=== PATIENT | female | born 1940 | race Caucasian/White ===

== ENCOUNTER → 2017-10-27 | Day surgery (SDC) | payer MEDICARE, OTHER ==
[~2017-10-27] MED LIST: ASPIR-LOW81 MG PO; FENOFIBRATE145 MG PO; FENTANYL CITRATE/PF 100MCG/2 ML INJ ONE; FERROUS SULFAT325 MG PO; FISH OIL 1,0001 EAC3 PO; HYDROCHLOROTHIA25 MG PO; LEVETIRACETAM500 MG PO; LISINOPRIL2.5 MG PO; METOPROLOL SUCC50 MG PO; MIDAZOLAM HCL 2 MG/2 ML VIAL ONE; OR PHACO EYE KIT ONE; PANTOPRAZOLE SO40 MG PO; PREOP PHACO EYE KIT ONE; SIMVASTATIN20 MG PO
--- OUTSIDE RECORDS SUMMARY | 2017-10-27 09:41 | XMS REPORT | Clinical Summary ---
Author Author [facility] Organization [facility] Address Unknown Phone Unavailable Care Team Providers Care Waitstaff Captain Name Role Phone Chase Gupta MD PCP Allergies Active Allergy Reactions Severity Noted Date Comments No Known Drug Allergies 04/16/2016 Current Medications Prescription Sig. Disp. Refills Start End Date Status Date pantoprazole (PROTONIX) Take 40 mg by mouth Active 40 MG EC tablet daily. levETIRAcetam (KEPPRA) Take 500 mg by mouth 2 Active 500 MG tablet (two) times a day. simvastatin (ZOCOR) 10 MG Take 10 mg by mouth Active tablet nightly. fenofibrate (TRICOR) 54 Take 54 mg by mouth Active MG tablet daily. Active Problems Problem Noted Date Electrolyte and fluid disorder 01/02/2016 Pancreas cancer 01/02/2016 Family History Medical History Relation Name Comments Hypertension Other Unspecified Relation Relation Name Status Comments Other Unspecified Relation Social History Tobacco Use Types Packs/Day Years Used Date Never Smoker Smokeless Tobacco: Never Used Alcohol Use Drinks/Week oz/Week Comments No Sex Assigned at Date Recorded Not on file Last Filed Vital Signs Not on file Plan of Treatment Health Maintenance Due Date Last Done Comments ZOSTER VACCINE 2001 PNEUMOCOCCAL 2006 POLYSACCHARIDE VACCINE AGE 65 AND OVER PNEUMOCOCCAL-13 2006 INFLUENZA VACCINE 02/10/2018 Results Not on fileafter 10/26/2016 Insurance Payer Benefit Subscriber ID Type Phone Address Plan / Group MEDICARE MEDICARE xxxxxxxxxx Medicare [place], [place] PART A AND B [facility] xxxxxxxxx HMO/PPO THCARE CHOICE/CHO ICE +
== END | disposition home or self-care (01) ==
LOC: OR 09:39
PROVIDERS: ATTEND Ophthalmology
DX: H25.11 Age-related nuclear cataract, right eye (principal); C25.9 Malignant neoplasm of pancreas, unspecified; K21.9 Gastro-esophageal reflux disease without esophagitis; E11.22 Type 2 diabetes mellitus with diabetic chronic kidney disease; I12.9 Hypertensive chronic kidney disease with stage 1 through stage 4 chronic kidney disease, or unspecified chronic kidney disease; N18.9 Chronic kidney disease, unspecified; Z79.82 Long term (current) use of aspirin
CPT/HCPCS: 66984; J2250; V2632

== ENCOUNTER → 2017-11-10 | Day surgery (SDC) | payer MEDICARE, OTHER ==
[~2017-11-10] MED LIST changes: -FENTANYL CITRATE/PF 100MCG/2 ML INJ ONE; -OR PHACO EYE KIT ONE; -PREOP PHACO EYE KIT ONE
--- OUTSIDE RECORDS SUMMARY | 2017-11-10 09:20 | XMS REPORT | Clinical Summary ---
Author Author [facility] Organization [facility] Address Unknown Phone Unavailable Care Team Providers Care Training And Development Assistant Name Role Phone Chase Gupta MD PCP [...] Health Maintenance Due Date Last Done Comments SHINGRIX VACCINE (#1) 1991 ZOSTER VACCINE 2001 PNEUMOCOCCAL 2006 POLYSACCHARIDE VACCINE AGE 65 AND OVER PNEUMOCOCCAL-13 2006 INFLUENZA VACCINE 02/10/2018 Results Not on fileafter 11/09/2016 Insurance Payer Benefit Subscriber ID Type Phone Address Plan / Group MEDICARE MEDICARE xxxxxxxxxx Medicare [place], [place] PART A AND B [facility] xxxxxxxxx HMO/PPO THCARE CHOICE/CHO ICE + Home: [address] [facility] [place] [phone]
== END | disposition home or self-care (01) ==
LOC: OR 09:18
PROVIDERS: ATTEND Ophthalmology
DX: H25.12 Age-related nuclear cataract, left eye (principal); E11.9 Type 2 diabetes mellitus without complications; Z79.4 Long term (current) use of insulin; I12.9 Hypertensive chronic kidney disease with stage 1 through stage 4 chronic kidney disease, or unspecified chronic kidney disease; N18.9 Chronic kidney disease, unspecified; Z85.07 Personal history of malignant neoplasm of pancreas; Z79.82 Long term (current) use of aspirin
CPT/HCPCS: 66984; J2250

== ENCOUNTER → 2018-01-26 | Outpatient (CLI) | payer MEDICARE, OTHER ==
[~2018-01-26] MED LIST changes: -MIDAZOLAM HCL 2 MG/2 ML VIAL ONE
[2018-01-26 10:58] LABS: CREATININE, SERUM 1.59 mg/dL (0.57-1.11)
--- NOTE | 2018-01-26 14:53 | Diagnostic Imaging Report ---
PROCEDURE: CT ABDOMEN AND PELVIS WITHOUT CONTRAST TECHNIQUE: The abdomen and pelvis were scanned utilizing a multidetector helical scanner from the diaphragm to the lesser trochanter after the oral administration of water. No IV contrast was administered due to decreased GFR. Coronal and sagittal multiplanar reformations were obtained. COMPARISON: [facility], CT, CT ABDOMEN W, 02/29/2016, 10:35. INDICATIONS: PANCREATIC CANCER FINDINGS: ABSENCE OF INTRAVENOUS CONTRAST DECREASES SENSITIVITY FOR DETECTION OF FOCAL LESIONS AND VASCULAR PATHOLOGY. LOWER THORAX: Stable 3-4 mm pulmonary nodule in the lateral left lower lobe (series 2 image 5). Stable 5 mm subpleural wedge-shaped nodular density in the right middle lobe (series 2, image 1), likely representing focal atelectasis or scarring. Lung bases are otherwise clear. Atherosclerotic calcification of the aortic valves, thoracic aorta and coronary arteries HEPATOBILIARY: No focal hepatic lesions. Pneumobilia, predominantly in left-sided ducts. The gallbladder is absent.. SPLEEN: No splenomegaly. PANCREAS: Postoperative changes consistent with Whipple procedure. No focal parenchymal lesions or ductal dilation. Interval development of ill-defined increased soft tissue density at the root of the mesentery which encircles the SMA and result in marked narrowing of the superior mesenteric vein below the confluence (series 2, image 33 coronal image 30 and sagittal image 70). Stable 3 mm calcification in the posterior aspect (series 2 image 32) ADRENALS: No adrenal nodules. KIDNEYS/URETERS: No hydronephrosis, stones, or solid mass lesions. Slight interval increase in size of 3.1 x 2.3 x 2.1 cm partially exophytic fluid density simple cysts in the lateral interpolar right kidney (series 2, image 31) which previously measured approximately 2.8 x 2.0 x 2.1 cm. Slight interval increase in size of 2.0 x 1.8 x 2.1 cm fluid density simple cyst in the lateral interpolar right kidney (series 2, image 36) which previously measured 1.6 x 1.6 x 1.5 cm. Status post left nephrectomy. 0.7 x 0.6 cm calcification located near the renal sinus in the interpolar region, which likely represents a vascular calcification/partly calcified aneurysm rather than a nonobstructing calculus PELVIC ORGANS/BLADDER: Circumferential bladder wall thickening. No focal lesions. Calcified fibroid in the uterine fundus. No adnexal masses. PERITONEUM / RETROPERITONEUM: No free air or fluid. LYMPH NODES: No lymphadenopathy. VESSELS: Atherosclerotic calcification of the abdominal aorta and iliac vessels. GI TRACT: No bowel dilation or evidence of obstruction. BONES AND SOFT TISSUES: No aggressive lytic lesions. Degenerative disc changes in the lumbosacral spine. IMPRESSION: 1. Interval development of ill-defined increase soft tissue density at the root of the mesentery surrounding the SMA, and resulting in narrowing of the SMV below the confluence. Further characterization is limited by the lack of intravenous contrast. Given the history of pancreatic neoplasm, local recurrence is a primary consideration, particularly in the setting of elevated CA 19-9. Postoperative fibrosis secondary to prior Whipple is a secondary consideration. 2. No evidence of metastatic disease in the abdomen or pelvic trauma within the limitations of this noncontrast exam. 3. Slight interval increase in size of 2 simple renal cysts. 4. Stable pulmonary nodule since 2016, which is presumed benign. Sergo Barber M.D. Dictated by: Sergo Barber M.D. on 01/26/2018 at 12:42 Electronically approved by: Sergo Barber M.D. on 01/26/2018 at 12:42
== END ==
LOC: CT 10:04
PROVIDERS: ATTEND Internal Medicine Medical Oncology
DX: Z85.07 Personal history of malignant neoplasm of pancreas (principal)
CPT/HCPCS: 36415; 74176; 82565; 84520

== ENCOUNTER 2018-06-16 09:00 | Observation (INO) | payer MEDICARE, OTHER ==
[~2018-06-16] VITALS: Ht 162.6 cm; Wt 57.4 kg
--- OUTSIDE RECORDS SUMMARY | 2018-06-16 09:03 | XMS REPORT | Clinical Summary ---
Author Author [facility] Address Unknown Phone Unavailable Care Team Providers Care Knitter Helper Name Role Phone Chase Gupta MD PCP Allergies Comments Active Allergy Reactions Severity Noted Date No Known Drug Allergies 04/16/2016 Medications End Date Status Medication Sig Dispensed Refills Start Date Active pantoprazole (PROTONIX) Take 40 mg by 0 40 MG EC tablet mouth daily. Active levETIRAcetam (KEPPRA) Take 500 mg 0 500 MG tablet by mouth 2 (two) times a day. Active simvastatin (ZOCOR) 10 MG Take 10 mg by 0 tablet mouth nightly. Active fenofibrate (TRICOR) 54 Take 54 mg by 0 MG tablet mouth daily. Active Problems Problem Noted Date Electrolyte and fluid disorder 01/02/2016 Pancreas cancer 01/02/2016 Family History Medical History Relation Name Comments Hypertension Other Unspecified Relation Relation Name Status Comments Other Unspecified Relation Social History Date Tobacco Use Types Packs/Day Years Used Never Smoker Smokeless Tobacco: Never Used Alcohol Use Drinks/Week oz/Week Comments No Sex Assigned at Date Recorded Not on file Industry Job Start Date Occupation Not on file Not on file Not on file Travel End Travel History Travel Start No recent travel history available. Last Filed Vital Signs Not on file Plan of Treatment Health Maintenance Due Date Last Done Comments SHINGRIX VACCINE (1 of 2) 1991 ZOSTER VACCINE 2001 PNEUMOCOCCAL 2006 POLYSACCHARIDE VACCINE AGE 65 AND OVER PNEUMOCOCCAL-13 2006 INFLUENZA VACCINE 02/10/2018 Procedures Comments Procedure Name Priority Date/Time Associated Diagnosis TRANSFUSE RED BLOOD CELLS Routine 03/17/2018 5:23 PM CDT TRANSFUSE RED BLOOD CELLS Routine 03/17/2018 5:23 PM CDT after 06/15/2017 Results * Transfuse RBC (03/17/2018 5:23 PM CDT) Only the most recent of 2 results within the time period is included. after 06/15/2017 Insurance Payer Benefit Subscriber ID Type Phone Address Plan / Group MEDICARE MEDICARE xxxxxxxxxx Medicare [place], [place] PART A AND B [facility] xxxxxxxxx HMO/PPO THCARE CHOICE/CHO ICE + Advance Directives Patient has advance care planning documents on file. For more information, jasson montilla contact: Liam oCx [phone] [place] [address]
--- OUTSIDE RECORDS SUMMARY | 2018-06-16 09:04 | XMS REPORT | Summary of Care ---
Author Author [facility] Organization [facility] Address Unknown Phone Unavailable Encounter OSCAR Thomson(SONIA) [id number] Date(s): 12/21/15 - 12/21/15 [facility] [address] [place] [address]- Discharge Disposition: Home Attending Physician: Salvatore Reynolds MD Referring Physician: Salvatore Reynolds MD Vital Signs 1 2 3 Most recent to oldest [Reference Range]: 162.56 cm (12/17/15 3:07 PM) Height 98.2 DegF (12/17/15 3:21 PM) Temperature Oral [96.4-99.1 DegF] 138/68 mmHg (12/21/15 5:00 PM) 125/58 mmHg (12/21/15 4:44 PM) 123/56 mmHg (12/21/15 4:30 PM) Blood Pressure [90-140/60-90 mmHg] 16 BRMIN (12/21/15 5:00 PM) 16 BRMIN (12/21/15 4:44 PM) 16 BRMIN (12/21/15 4:30 PM) Respiratory Rate [14-20 BRMIN] 60 bpm (12/21/15 11:11 AM) 64 bpm (12/17/15 3:21 PM) Peripheral Pulse Rate [60-100 bpm] 53.636 kg (12/17/15 3:07 PM) Weight 20.3 m2 (12/17/15 3:07 PM) Body Mass Index Problem List Condition Effective Dates Status Health Status Informant Acid Active reflux(Confirmed) Hyperlipidemia(Confi Active rmed) Hypertension(Confirm Active ed) Allergies, Adverse Reactions, Alerts Substance Reaction Severity Status NKDA Active Medications aspirin 81 mg tablet, enteric coated 81 mg=1 tab, PO, Daily, # 90 tab, 3 Refill(s) Start Date: 12/17/15 Status: Ordered calcium calcium, 1 tab, PO, BID, Refill(s) 0 Start Date: 12/17/15 Status: Ordered fenofibrate 54 mg oral tablet 54 mg=1 tab, PO, Daily, # 30 tab, 0 Refill(s) Start Date: 12/17/15 Status: Ordered Fish Oil PO, 0 Refill(s) Start Date: 12/17/15 Status: Ordered hydrochlorothiazide 12.5 mg oral tablet 12.5 mg=1 tab, PO, Daily, # 30 tab, 0 Refill(s) Start Date: 12/17/15 Status: Ordered metoprolol 50 mg oral tablet, extended release 50 mg=1 tab, PO, Daily, # 30 tab, 0 Refill(s) Start Date: 12/17/15 Status: Ordered pantoprazole 40 mg oral enteric coated tablet 40 mg=1 tab, PO, Daily, # 30 tab, 0 Refill(s) Start Date: 12/17/15 Status: Ordered simvastatin 10 mg oral tablet 10 mg=1 tab, PO, Bedtime, # 30 tab, 0 Refill(s) Start Date: 12/17/15 Status: Ordered sodium chloride 0.9% 1000 ml INJ 1,000 mL 1,000 mL, Rate: 25 ml/hr, Infuse over: 40 hr, Route: IV, Dosing Weight 53.636 kg , Total Volume: 1,000, Start date: 12/21/15 11:24:00 CDT, Duration: 30 day, Stop date: 01/20/16 11:23:00 CDT Start Date: 12/21/15 Stop Date: 12/21/15 Status: Discontinued Results ELECTROLYTES Most recent to 1 oldest [Reference Range]: Sodium Lvl [135-145 137 mEq/L mEq/L] (12/17/15 3:49 PM) Potassium Lvl 3.3 mEq/L [3.5-5.1 mEq/L] *LOW* (12/17/15 3:49 PM) Chloride Lvl [95-109 100 mEq/L mEq/L] (12/17/15 3:49 PM) CO2 [24-32 mEq/L] 27 mEq/L (12/17/15 3:49 PM) AGAP [10.0-20.0 13.3 mEq/L mEq/L] (12/17/15 3:49 PM) CHEM PANEL Most recent to 1 oldest [Reference Range]: Creatinine Lvl 1.16 mg/dL [0.50-1.40 mg/dL] (12/17/15 3:49 PM) eGFR 46 mL/min/1.73m2 1 *NA* (12/17/15 3:49 PM) BUN [7-22 mg/dL] 20 mg/dL (12/17/15 3:49 PM) Glucose Lvl [70-99 115 mg/dL mg/dL] *HI* (12/17/15 3:49 PM) Calcium Lvl 9.1 mg/dL [8.5-10.5 mg/dL] (12/17/15 3:49 PM) 1Result Comment: The eGFR is calculated using the CKD-EPI formula. In most young, healthy individuals the eGFR will be >90 mL/min/1.73m2. The eGFR declines with age. An eGFR of 60-89 may be normal in some populations, particularly the elderly, for whom the CKD-EPI formula has not been extensively validated. Use of the eGFR is not recommended in the following populations: Individuals with unstable creatinine concentrations, including patients and those with serious co-morbid conditions. Patients with extremes in muscle mass or diet. The data above are obtained from the National Kidney Disease Education Program ( NKDEP) which additionally recommends that when the eGFR is used in patients with extremes of body mass index for purposes of drug dosing, the eGFR should be mul tiplied by the estimated BMI. Immunizations No data available for this section Procedures Procedure Date Related Diagnosis Body Site Tubal ligation 05/13/80 Stent placement Social History Social History Type Response Substance Abuse Use: None. Alcohol Never Smoking Status Never smoker; Exposure to Tobacco Smoke None; Cigarette Smoking Last 365 Days No; Reg Smoking Cessation Counseling No Assessment and Plan No data available for this section
--- OUTSIDE RECORDS SUMMARY | 2018-06-16 09:04 | XMS REPORT ---
Author Author [facility] Address Unknown Phone Unavailable Care Team Providers Care Engineering Coordinator Name Role Phone THANH AREVALO Unavailable Unavailable Problems This patient has no known problems. Allergies, Adverse Reactions, Alerts This patient has no known allergies or adverse reactions. Medications This patient has no known medications. Results Test Description Test Time Test Comments Text Results Atomic Results Result Comments CT ABDOMEN/PELVIS WO 2018-01-26 12:42:00 [place] [address] Patient Name: AN MIN MR #: [id number] : 1940 Age/Sex: 77/F Req #: [id number] Adm Physician: Ordered by: THANH AREVALO MD Report #: [id number] Location: CT Room/Bed: Procedure: [id number] CT/CT ABDOMEN/PELVIS WO Exam Date: 01/26/18 Exam Time: 1115 REPORT STATUS: Signed PROCEDURE: CT ABDOMEN AND PELVIS WITHOUT CONTRAST TECHNIQUE: The abdomen and pelvis were scanned utilizing a multidetector helical scanner from the diaphragm to the lesser trochanter after the oral administration of water. No IV contrast was administered due to decreased GFR. Coronal and sagittal multiplanar reformations were obtained. COMPARISON: [facility], CT, CT ABDOMEN W, 02/29/2016, 10:35. INDICATIONS: PANCREATIC CANCER FINDINGS: ABSENCE OF INTRAVENOUS CONTRAST DECREASES SENSITIVITY FOR DETECTION OF FOCAL LESIONS AND VASCULAR PATHOLOGY. LOWER THORAX: Stable 3-4 mm pulmonary nodule in the lateral left lower lobe (series 2 image 5). Stable 5 mm subpleural wedge-shaped nodular density in the right middle lobe (series 2, image 1), likely representing focal atelectasis or scarring. Lung bases are otherwise clear. Atherosclerotic calcification of the aortic valves, thoracic aorta and coronary arteries HEPATOBILIARY: No focal hepatic lesions. Pneumobilia, predominantly in left- sided ducts. The gallbladder is absent.. SPLEEN: No splenomegaly. PANCREAS: Postoperative changes consistent with Whipple procedure. No focal parenchymal lesions or ductal dilation. Interval development of ill-defined increased soft tissue density at the root of the mesentery which encircles the SMA and result in marked narrowing of the superior mesenteric vein below the confluence (series 2, image 33 coronal image 30 and sagittal image 70). Stable 3 mm calcification in the posterior aspect (series 2 image 32) ADRENALS: No adrenal nodules. KIDNEYS/URETERS: No hydronephrosis, stones, or solid mass lesions. Slight interval increase in size of 3.1 x 2.3 x 2.1 cm partially exophytic fluid density simple cysts in the lateral interpolar right kidney (series 2, image 31) which previously measured approximately 2.8 x 2.0 x 2.1 cm. Slight interval increase in size of 2.0 x 1.8 x 2.1 cm fluid density simple cyst in the lateral interpolar right kidney (series 2, image 36) which previously measured 1.6 x 1.6 x 1.5 cm. Status post left nephrectomy. 0.7 x 0.6 cm calcification located near the renal sinus in the interpolar region, which likely represents a vascular calcification/partly calcified aneurysm rather than a nonobstructing calculus PELVIC ORGANS/BLADDER: Circumferential bladder wall thickening. No focal lesions. Calcified fibroid in the uterine fundus. No adnexal masses. PERITONEUM / RETROPERITONEUM: No free air or fluid. LYMPH NODES: No lymphadenopathy. VESSELS: Atherosclerotic calcification of the abdominal aorta and iliac vessels. GI TRACT: No bowel dilation or evidence of obstruction. BONES AND SOFT TISSUES: No aggressive lytic lesions. Degenerative disc changes in the lumbosacral spine. IMPRESSION: 1. Interval development of ill-defined increase soft tissue density at the root of the mesentery surrounding the SMA, and resulting in narrowing of the SMV below the confluence. Further characterization is limited by the lack of intravenous contrast. Given the history of pancreatic neoplasm, local recurrence is a primary consideration, particularly in the setting of elevated CA 19-9. Postoperative fibrosis secondary to prior Whipple is a secondary consideration. 2. No evidence of metastatic disease in the abdomen or pelvic trauma within the limitations of this noncontrast exam. 3. Slight interval increase in size of 2 simple renal cysts. 4. Stable pulmonary nodule since 2016, which is presumed benign. Sabrina Salgado M.D. Dictated by: Sabrina Salgado M.D. on 01/26/2018 at 12:42 Electronically approved by: Sabrina Salgado M.D. on 01/26/2018 at 12:42 Dictated By: SABRINA SALGADO MD [id number] Transcribed By: NIXON on 01/26/18 1242 COPY TO: THANH AREVALO MD
--- OUTSIDE RECORDS SUMMARY | 2018-06-16 09:04 | XMS REPORT | Summary of Care ---
Author Author [facility] Organization [facility] Address Unknown Phone Unavailable Encounter OSCAR Thomson(SONIA) [id number] Date(s): 12/25/15 - 12/26/15 [facility] [address] [employer] provided by [facility] [place] [address]- Discharge Disposition: Home Attending Physician: Bran Jorge MD Admitting Physician: García George MD Referring Physician: Jose Carrera MD Vital Signs 1 2 3 Most recent to oldest [Reference Range]: 162.56 cm (12/25/15 4:54 AM) 162.56 cm (12/25/15 1:03 AM) Height 98.1 DegF (12/25/15 1:03 AM) Temperature Oral [96.4-99.1 DegF] 149/68 mmHg *HI* (12/26/15 1:00 PM) 130/59 mmHg (12/26/15 12:00 PM) 134/63 mmHg (12/26/15 11:00 AM) Blood Pressure [90-140/60-90 mmHg] 21 BRMIN *HI* (12/26/15 1:00 PM) 25 BRMIN *HI* (12/26/15 12:00 PM) 22 BRMIN *HI* (12/26/15 11:00 AM) Respiratory Rate [14-20 BRMIN] 65 bpm (12/25/15 1:03 AM) Peripheral Pulse Rate [60-100 bpm] 52.182 kg (12/25/15 4:54 AM) 55 kg (12/25/15 1:03 AM) Weight 19.75 m2 (12/25/15 4:54 AM) 20.81 m2 (12/25/15 1:03 AM) Body Mass Index Problem List Condition Effective Dates Status Health Status Informant Acid Active reflux(Confirmed) Hyperlipidemia(Confi Active rmed) Hypertension(Confirm Active ed) Mass of Resolved pancreas(Confirmed) Allergies, Adverse Reactions, Alerts Substance Reaction Severity Status NKDA Active Medications acetaminophen-hydrocodone 325 mg-10 mg oral tablet 1 tab, Route: PO, Drug Form: TAB, Dosing Weight 55, kg, Q4H, PRN Pain Score 4-6, Start date: 12/25/15 2:09:00 CDT, Duration: 30 day, Stop date: 01/24/16 2:08:00 CDT Notes: Do not exceed 4gm/day of acetaminophen. (Same as: Askov 325/10) Start Date: 12/25/15 Stop Date: 12/25/15 Status: Discontinued acetaminophen-hydrocodone 325 mg-5 mg oral tablet 1 tab, Route: PO, Drug Form: TAB, Dosing Weight 55, kg, Q4H, PRN Pain Score 1-3, Start date: 12/25/15 2:09:00 CDT, Duration: 30 day, Stop date: 01/24/16 2:08:00 CDT Notes: (Same as: Askov 325/5) Do not exceed 4gm/day of acetaminophen. Start Date: 12/25/15 Stop Date: 12/25/15 Status: Discontinued bisacodyl 10 mg, 1 supp, Route: PA, Drug form: SUPP, Daily, Dosing Weight 55, kg, PRN Cons tipation, Start date: 12/25/15 2:09:00 CDT, Duration: 30 day, Stop date: 6 2:08:00 CDT Notes: (Same As: Dulcolax, Bisco-Lax) Start Date: 12/25/15 Stop Date: 12/26/15 Status: Discontinued calcium carbonate 500 mg (200 mg elemental calcium) oral tablet 1,000 mg, 2 tab, Route: PO, Drug form: CHEWTAB, PRN, Dosing Weight 52.182, kg, P RN Abnormal Lab Result, FOR ICU USE ONLY, Start date: 12/25/15 6:31:00 CDT, Dura tion: 30 day, Stop date: 01/24/16 6:30:00 CDT Notes: (Same As: [place])Calcium Carbonate 500 kx=624 mg elemental calcium Dose=_ mg calcium carbonate ( mg elemental calcium) Start Date: 12/25/15 Stop Date: 12/26/15 Status: Discontinued calcium carbonate 500 mg (200 mg elemental calcium) oral tablet 500 mg, 1 tab, Route: PO, Drug form: CHEWTAB, PRN, Dosing Weight 52.182, kg, PRN Abnormal Lab Result, FOR ICU USE ONLY, Start date: 12/25/15 6:31:00 CDT, Durati on: 30 day, Stop date: 01/24/16 6:30:00 CDT Notes: (Same As: Tums)Calcium Carbonate 500 md=349 mg elemental calcium Dose=_ mg calcium carbonate ( mg elemental calcium) Start Date: 12/25/15 Stop Date: 12/26/15 Status: Discontinued calcium gluconate + sodium chloride 0.9% INJ 50 mL 1 gm, 10 mL, Route: IVPB, PRN, Dosing Weight 52.182, kg, PRN Abnormal Lab Result , Start date: 12/25/15 6:31:00 CDT, Duration: 30 day, Stop date: 01/24/16 6:30:0 0 CDT, FOR ICU USE ONLY Notes: WASTE: F/P - Sink; E - Municipal Trash Bin Start Date: 12/25/15 Stop Date: 12/26/15 Status: Discontinued Dextrose 50% Syringe 6.25 gm, 12.5 mL, Route: IVP, Drug Form: INJ, Dosing Weight 55, kg, PRN, PRN Abn ormal Lab Result, Start date: 12/25/15 2:09:00 CDT, Duration: 30 day, Stop date: 01/24/16 2:08:00 CDT Start Date: 12/25/15 Stop Date: 12/26/15 Status: Discontinued Dextrose 50% Syringe 25 gm, 50 mL, Route: IVP, Drug Form: INJ, Dosing Weight 55, kg, PRN, PRN Abnorma l Lab Result, Start date: 12/25/15 2:09:00 CDT, Duration: 30 day, Stop date: 2:08:00 CDT Start Date: 12/25/15 Stop Date: 12/26/15 Status: Discontinued Dextrose 50% Syringe 12.5 gm, 25 mL, Route: IVP, Drug Form: INJ, Dosing Weight 55, kg, PRN, PRN Abnor mal Lab Result, Start date: 12/25/15 2:09:00 CDT, Duration: 30 day, Stop date: 0 01/24/16 2:08:00 CDT Start Date: 12/25/15 Stop Date: 12/26/15 Status: Discontinued docusate 100 mg, 1 cap, Route: PO, Drug form: CAP, Q12H, Dosing Weight 55, kg, Start date : 12/25/15 9:00:00 CDT, Duration: 30 day, Stop date: 01/23/16 21:00:00 CDT Notes: (Same as: Colace) (Do Not Crush) Start Date: 12/25/15 Stop Date: 12/26/15 Status: Discontinued insulin regular 100 units/mL human recombinant 3 unit, 0.03 mL, Route: SUB-Q, Drug form: SOLN, PRN, Dosing Weight 55, kg, PRN A bnormal Lab Result, Start date: 12/25/15 2:09:00 CDT, Duration: 30 day, Stop cristal e: 01/24/16 2:08:00 CDT Notes: (Same as: Humulin R) Roll in palms of hands gently; Do not shake vigorou sly. "single patient use only"(Restricted to patients requiring a dose > 60 units)WASTE: F/P - Black; E - Municipal Trash Bin Stable for 28 days at room temperatureExpires in days from Date Start Date: 12/25/15 Stop Date: 12/26/15 Status: Discontinued insulin regular 100 units/mL human recombinant 5 unit, 0.05 mL, Route: SUB-Q, Drug form: SOLN, PRN, Dosing Weight 55, kg, PRN A bnormal Lab Result, Start date: 12/25/15 2:09:00 CDT, Duration: 30 day, Stop cristal e: 01/24/16 2:08:00 CDT Notes: (Same as: Humulin R) Roll in palms of hands gently; Do not shake vigorou sly. "single patient use only"(Restricted to patients requiring a dose > 60 units)WASTE: F/P - Black; E - Municipal Trash Bin Stable for 28 days at room temperatureExpires in days from Date Start Date: 12/25/15 Stop Date: 12/26/15 Status: Discontinued insulin regular 100 units/mL human recombinant 7 unit, 0.07 mL, Route: SUB-Q, Drug form: SOLN, PRN, Dosing Weight 55, kg, PRN A bnormal Lab Result, Start date: 12/25/15 2:09:00 CDT, Duration: 30 day, Stop cristal e: 01/24/16 2:08:00 CDT Notes: (Same as: Humulin R) Roll in palms of hands gently; Do not shake vigorou sly. "single patient use only"(Restricted to patients requiring a dose > 60 units)WASTE: F/P - Black; E - Municipal Trash Bin Stable for 28 days at room temperatureExpires in days from Date Start Date: 12/25/15 Stop Date: 12/26/15 Status: Discontinued levETIRAcetam 500 mg, 1 tab, Route: PO, Drug form: TAB, Q12H, Dosing Weight 55, kg, Start date : 12/25/15 9:00:00 CDT, Stop date: 12/31/15 23:59:00 CDT Notes: (Same as:Keppra) Start Date: 12/25/15 Stop Date: 12/26/15 Status: Discontinued levETIRAcetam + sodium chloride 0.9% INJ 100 mL 1,000 mg, Route: IVPB, Drug form: INJ, ONCE, Dosing Weight 55, kg, Start date: 0 12/25/15 2:09:00 CDT, Stop date: 12/25/15 2:09:00 CDT Notes: Same as KeppraMix with 100 mL NS, LR or D5W MEDICATION WASTE Prod uct Size: 500 mgProduct Wasted: __0_ mg Start Date: 12/25/15 Stop Date: 12/25/15 Status: Completed levETIRAcetam 500 mg oral tablet 500 mg=1 tab, PO, Q12H, # 11 tab, 0 Refill(s) Start Date: 12/26/15 Status: Ordered Lovenox 40 mg, 0.4 mL, Route: SUB-Q, Drug form: INJ, [id number], Dosing Weight 52.182, kg, Start date: 12/26/15 9:00:00 CDT, Duration: 30 day, Stop date: 01/24/16 9:00:00 CDT Notes: (Same as: Lovenox) Start Date: 12/26/15 Stop Date: 12/26/15 Status: Discontinued magnesium oxide 800 mg, 2 tab, Route: PO, Drug form: TAB, PRN, Dosing Weight 52.182, kg, PRN Abn ormal Lab Result, FOR ICU USE ONLY, Start date: 12/25/15 6:31:00 CDT, Duration: 30 day, Stop date: 01/24/16 6:30:00 CDT Notes: (Same as: Mag-Ox 400)Magnesium oxide [id number] elemental magnesiumDose= ____mg magnesium oxide (___mg elemental magnesium) Start Date: 12/25/15 Stop Date: 12/26/15 Status: Discontinued magnesium sulfate 2 gm, 50 mL, Route: IVPB, Drug form: INJ, PRN, Dosing Weight 52.182, kg, PRN Abn ormal Lab Result, Start date: 12/25/15 6:31:00 CDT, Duration: 30 day, Stop date: 01/24/16 6:30:00 CDT, FOR ICU USE ONLY Notes: WASTE: F/P - Sink; E - Municipal Trash Bin Start Date: 12/25/15 Stop Date: 12/26/15 Status: Discontinued metoprolol tartrate 12.5 mg, 1 tab, Route: PO, Drug form: TAB, Q12H, Dosing Weight 52.182, kg, Start date: 12/25/15 9:00:00 CDT, Duration: 30 day, Stop date: 01/23/16 21:00:00 CDT Notes: (Same as: Lopressor) 12.5mg=1/4 X 50 mg tab. Start Date: 12/25/15 Stop Date: 12/26/15 Status: Discontinued Neutra-Phos 2 pkt, Route: PO, Drug Form: PDR/REC, Dosing Weight 52.182, kg, PRN, PRN Abnorma l Lab Result, FOR ICU USE ONLY, Start date: 12/25/15 6:31:00 CDT, Duration: 30 d ay, Stop date: 01/24/16 6:30:00 CDT Notes: (Same as: Neutra-Phos) Each 1.25 gm pkt has 250mg phosphorous. Mix w/2.5 oz water and stir. Start Date: 12/25/15 Stop Date: 12/26/15 Status: Discontinued ondansetron 4 mg, 2 mL, Route: IVP, Drug form: INJ, Q8H, Dosing Weight 55, kg, PRN Nausea & Vomiting, Start date: 12/25/15 2:09:00 CDT, Duration: 30 day, Stop date: 2:08:00 CDT Notes: (Same as: Sherri) MEDICATION WASTE Product Size: 4 mgProduct Was rashel: __0_ mg Start Date: 12/25/15 Stop Date: 12/26/15 Status: Discontinued potassium chloride 20 mEq, 100 mL, Route: IVPB, Drug form: INJ, PRN, Dosing Weight 52.182, kg, PRN Abnormal Lab Result, Via central line, Start date: 12/25/15 6:31:00 CDT, Duratio n: 30 day, Stop date: 01/24/16 6:30:00 CDT, FOR ICU USE ONLY Notes: (Same as: KCL) Infuse no faster than 10 mEq/hr if given peripherally. Start Date: 12/25/15 Stop Date: 12/26/15 Status: Discontinued potassium chloride 10 mEq, 50 mL, Route: IVPB, Drug form: INJ, PRN, Dosing Weight 52.182, kg, PRN A bnormal Lab Result, Via peripheral line, Start date: 12/25/15 6:31:00 CDT, Durat ion: 30 day, Stop date: 01/24/16 6:30:00 CDT, FOR ICU USE ONLY Notes: (Same as: KCL) Infuse over 2 hours. Start Date: 12/25/15 Stop Date: 12/26/15 Status: Discontinued potassium chloride 20 mEq, 1 tab, Route: PO, Drug form: ERTAB, PRN, Dosing Weight 52.182, kg, PRN A bnormal Lab Result, Start date: 12/25/15 6:31:00 CDT, Duration: 30 day, Stop cristal e: 01/24/16 6:30:00 CDT, FOR ICU USE ONLY Notes: (Same as: K-Dur 20)"Do Not Crush" With food and full glass of water Start Date: 12/25/15 Stop Date: 12/26/15 Status: Discontinued potassium chloride 20 mEq, 15 mL, Route: NJ, Drug form: LIQ, PRN, Dosing Weight 52.182, kg, PRN Abn ormal Lab Result, Start date: 12/25/15 6:31:00 CDT, Duration: 30 day, Stop date: 01/24/16 6:30:00 CDT, FOR ICU USE ONLY Notes: (Same as: Potassium Chloride) Start Date: 12/25/15 Stop Date: 12/26/15 Status: Discontinued potassium phosphate + sodium chloride 0.9% INJ 250 mL 15 mmol, 5 mL, Route: IVPB, Drug form: INJ, PRN, Dosing Weight 52.182, kg, PRN A bnormal Lab Result, Start date: 12/25/15 6:31:00 CDT, Duration: 30 day, Stop cristal e: 01/24/16 6:30:00 CDT, FOR ICU USE ONLY Notes: (Same as: K Phosphate.) 1 mMol phoshate has 1.47 mEq potassium Infuse o rosa 4 hours Start Date: 12/25/15 Stop Date: 12/26/15 Status: Discontinued potassium phosphate + sodium chloride 0.9% INJ 250 mL 30 mmol, 10 mL, Route: IVPB, Drug form: INJ, PRN, Dosing Weight 52.182, kg, PRN Abnormal Lab Result, Start date: 12/25/15 6:31:00 CDT, Duration: 30 day, Stop da te: 01/24/16 6:30:00 CDT, FOR ICU USE ONLY Notes: (Same as: K Phosphate.) 1 mMol phoshate has 1.47 mEq potassium Infuse o rosa 4 hours Start Date: 12/25/15 Stop Date: 12/26/15 Status: Discontinued potassium phosphate + sodium chloride 0.9% INJ 250 mL 45 mmol, 15 mL, Route: IVPB, Drug form: INJ, PRN, Dosing Weight 52.182, kg, PRN Abnormal Lab Result, Start date: 12/25/15 6:31:00 CDT, Duration: 30 day, Stop da te: 01/24/16 6:30:00 CDT, FOR ICU USE ONLY Notes: (Same as: K Phosphate.) 1 mMol phoshate has 1.47 mEq potassium Infuse o rosa 4 hours Start Date: 12/25/15 Stop Date: 12/26/15 Status: Discontinued Protonix 40 mg, 1 tab, Route: PO, Drug form: ECTAB, Before Breakfast, Dosing Weight 52.18 2, kg, Start date: 12/25/15 7:30:00 CDT, Duration: 30 day, Stop date: 01/23/16 7 :30:00 CDT Notes: Tablet should not be chewed or crushed.(Same as: Protonix) Start Date: 12/25/15 Stop Date: 12/26/15 Status: Discontinued Saline Flush 0.9% 10 mL, Route: IVP, Drug Form: INJ, Dosing Weight 55, kg, PRN, PRN Line Flush, St art date: 12/25/15 1:11:00 CDT, Duration: 30 day, Stop date: 01/24/16 1:10:00 CD T Notes: Same as: BD Posiflush Sterile Start Date: 12/25/15 Stop Date: 12/26/15 Status: Discontinued Saline Flush 0.9% 10 ml, Route: IVP, Drug Form: INJ, Dosing Weight 55, kg, Q12H, Start date: 12/24 9:00:00 CDT, Duration: 30 day, Stop date: 01/23/16 21:00:00 CDT Notes: (Same as: BD Posiflush) Start Date: 12/25/15 Stop Date: 12/26/15 Status: Discontinued Saline Flush 0.9% 10 ml, Route: IVP, Drug Form: INJ, Dosing Weight 55, kg, PRN, PRN Line Flush, St art date: 12/25/15 2:09:00 CDT, Duration: 30 day, Stop date: 01/24/16 2:08:00 CD T Notes: (Same as: BD Posiflush) Start Date: 12/25/15 Stop Date: 12/26/15 Status: Discontinued senna 8.6 mg, 1 tab, Route: PO, Drug Form: TAB, Dosing Weight 55, kg, Q12H, Start date : 12/25/15 9:00:00 CDT, Duration: 30 day, Stop date: 01/23/16 21:00:00 CDT Notes: (Same as: Senokot) Start Date: 12/25/15 Stop Date: 12/26/15 Status: Discontinued simvastatin 10 mg, 1 tab, Route: PO, Drug form: TAB, Bedtime, Dosing Weight 52.182, kg, Star t date: 12/25/15 21:00:00 CDT, Duration: 30 day, Stop date: 01/23/16 21:00:00 CD T Notes: (Same as: Zocor) Start Date: 12/25/15 Stop Date: 12/26/15 Status: Discontinued sodium chloride 0.9% 1000 ml INJ 1,000 mL 1,000 mL, Rate: 75 ml/hr, Infuse over: 13.3 hr, Route: IV, Dosing Weight 55 kg, Total Volume: 1,000, Start date: 12/25/15 2:09:00 CDT, Stop date: 01/24/16 2:08: 00 CDT Start Date: 12/25/15 Stop Date: 12/26/15 Status: Discontinued sodium phosphate + sodium chloride 0.9% INJ 250 mL 15 mmol, 5 mL, Route: IVPB, Drug form: INJ, PRN, Dosing Weight 52.182, kg, PRN A bnormal Lab Result, Start date: 12/25/15 6:31:00 CDT, Duration: 30 day, Stop cristal e: 01/24/16 6:30:00 CDT, FOR ICU USE ONLY Start Date: 12/25/15 Stop Date: 12/26/15 Status: Discontinued sodium phosphate + sodium chloride 0.9% INJ 250 mL 30 mmol, 10 mL, Route: IVPB, Drug form: INJ, PRN, Dosing Weight 52.182, kg, PRN Abnormal Lab Result, Start date: 12/25/15 6:31:00 CDT, Duration: 30 day, Stop da te: 01/24/16 6:30:00 CDT, FOR ICU USE ONLY Start Date: 12/25/15 Stop Date: 12/26/15 Status: Discontinued sodium phosphate + sodium chloride 0.9% INJ 250 mL 45 mmol, 15 mL, Route: IVPB, Drug form: INJ, PRN, Dosing Weight 52.182, kg, PRN Abnormal Lab Result, Start date: 12/25/15 6:31:00 CDT, Duration: 30 day, Stop da te: 01/24/16 6:30:00 CDT, FOR ICU USE ONLY Start Date: 12/25/15 Stop Date: 12/26/15 Status: Discontinued Zofran 4 mg, Route: IVP, Drug form: INJ, ONCE, Dosing Weight 55, kg, Start date: 4:40:00 CDT, Stop date: 12/25/15 4:40:00 CDT Start Date: 12/25/15 Stop Date: 12/25/15 Status: Completed Results BLOOD BANK RESULTS 1 2 3 Most recent to oldest [Reference Range]: A NEG *Unknown* (12/25/15 1:36 AM) ABO/Rh Negative (12/25/15 1:36 AM) Antibody Scrn ELECTROLYTES 1 2 3 Most recent to oldest [Reference Range]: 141 mEq/L (12/26/15 12:57 AM) 139 mEq/L (12/25/15 12:47 PM) 138 mEq/L (12/25/15 5:02 AM) Sodium Lvl [135-145 mEq/L] 3.5 mEq/L (12/26/15 12:57 AM) 4.7 mEq/L (12/25/15 12:47 PM) 3.0 mEq/L 1 *CRIT* (12/25/15 5:02 AM) Potassium Lvl [3.5-5.1 mEq/L] 109 mEq/L (12/26/15 12:57 AM) 109 mEq/L (12/25/15 12:47 PM) 104 mEq/L (12/25/15 5:02 AM) Chloride Lvl [95-109 mEq/L] 23 mEq/L *LOW* (12/26/15 12:57 AM) 23 mEq/L *LOW* (12/25/15 12:47 PM) 22 mEq/L *LOW* (12/25/15 5:02 AM) CO2 [24-32 mEq/L] 12.5 mEq/L (12/26/15 12:57 AM) 11.7 mEq/L (12/25/15 12:47 PM) 15.0 mEq/L (12/25/15 5:02 AM) AGAP [10.0-20.0 mEq/L] 1Result Comment: Critical Result(s) called to yousif zhao at 12/25/2015 06:25 by ko. Read back OK. CHEM PANEL 1 2 3 Most recent to oldest [Reference Range]: 0.83 mg/dL (12/26/15 12:57 AM) 0.84 mg/dL (12/25/15 12:47 PM) 1.01 mg/dL (12/25/15 5:02 AM) Creatinine Lvl [0.50-1.40 mg/dL] 70 mL/min/1.73m2 1 *NA* (12/26/15 12:57 AM) 69 mL/min/1.73m2 2 *NA* (12/25/15 12:47 PM) 55 mL/min/1.73m2 3 *NA* (12/25/15 5:02 AM) eGFR 17 mg/dL (12/26/15 12:57 AM) 18 mg/dL (12/25/15 12:47 PM) 18 mg/dL (12/25/15 5:02 AM) BUN [7-22 mg/dL] 93 mg/dL (12/26/15 12:57 AM) 89 mg/dL (12/25/15 12:47 PM) 118 mg/dL *HI* (12/25/15 5:02 AM) Glucose Lvl [70-99 mg/dL] 5.7 g/dL *LOW* (12/26/15 12:57 AM) 6.0 g/dL *LOW* (12/25/15 12:47 PM) Total Protein [6.4-8.4 g/dL] 2.2 g/dL *LOW* (12/26/15 12:57 AM) 2.4 g/dL *LOW* (12/25/15 12:47 PM) Albumin Lvl [3.5-5.0 g/dL] 3.5 g/dL (12/26/15 12:57 AM) 3.6 g/dL (12/25/15 12:47 PM) Globulin [2.0-4.0 g/dL] 0.6 *LOW* (12/26/15 12:57 AM) 0.7 (12/25/15 12:47 PM) A/G Ratio [0.7-1.6] 8.7 mg/dL (12/26/15 12:57 AM) 9.0 mg/dL (12/25/15 12:47 PM) 9.2 mg/dL (12/25/15 5:02 AM) Calcium Lvl [8.5-10.5 mg/dL] 1.6 mg/dL *LOW* (12/26/15 12:57 AM) 2.5 mg/dL (12/25/15 5:05 AM) Phosphorus [2.5-4.5 mg/dL] 1.8 mg/dL (12/26/15 12:57 AM) 2.0 mg/dL (12/25/15 5:05 AM) Magnesium Lvl [1.8-2.4 mg/dL] 137 unit/L *HI* (12/26/15 12:57 AM) 161 unit/L *HI* (12/25/15 12:47 PM) ALT [0-65 unit/L] 108 unit/L *HI* (12/26/15 12:57 AM) 142 unit/L *HI* (12/25/15 12:47 PM) AST [0-37 unit/L] 133 unit/L (12/26/15 12:57 AM) 152 unit/L *HI* (12/25/15 12:47 PM) Alk Phos [39-136 unit/L] 155 unit/L (12/25/15 12:47 PM) LDH [98-192 unit/L] 3.8 mg/dL *HI* (12/26/15 12:57 AM) 4.2 mg/dL *HI* (12/25/15 12:47 PM) Bili Total [0.2-1.3 mg/dL] 3.0 mg/dL *HI* (12/26/15 12:57 AM) 3.7 mg/dL *HI* (12/25/15 12:47 PM) Bili Direct [0.0-0.3 mg/dL] 0.8 mg/dL (12/26/15 12:57 AM) 0.5 mg/dL (12/25/15 12:47 PM) Bili Indirect [0.0-1.0 mg/dL] 1.2 mMol/L (12/25/15 1:36 AM) Lactic Acid Lvl [0.5-2.2 mMol/L] 1Result Comment: The eGFR is calculated using [...] be mul tiplied by the estimated BMI. 2Result Comment: The eGFR is calculated using the [...] be mul tiplied by the estimated BMI. 3Result Comment: The eGFR is calculated using the [...] be mul tiplied by the estimated BMI. CARDIAC ENZYMES 1 2 3 Most recent to oldest [Reference Range]: 31 unit/L (12/25/15 12:47 PM) 46 unit/L (12/25/15 5:02 AM) Total CK [12-191 unit/L] <0.010 ng/mL (12/25/15 12:47 PM) <0.010 ng/mL (12/25/15 5:02 AM) Troponin-T [0.000-0.100 ng/mL] 0.02 ng/mL (12/25/15 12:47 PM) 0.02 ng/mL (12/25/15 5:02 AM) Troponin-I [0.00-0.40 ng/mL] ANEMIA STUDY 1 2 3 Most recent to oldest [Reference Range]: 69 ug/dl (12/25/15 12:47 PM) Iron [30-160 ug/dl] 560 ng/mL *HI* (12/25/15 12:47 PM) Ferritin Lvl [5-204 ng/mL] 36 % (12/25/15 12:47 PM) % Satur Fe [12-57 %] 123 ug/dl (12/25/15 12:47 PM) UIBC [110-370 ug/dl] 192 ug/dl *LOW* (12/25/15 12:47 PM) TIBC [228-428 ug/dl] PARATHYROID PROFILE 1 2 3 Most recent to oldest [Reference Range]: 1.17 mMol/L (12/26/15 12:57 AM) 1.19 mMol/L (12/25/15 5:05 AM) Ca Ion WB [1.05-1.25 mMol/L] 1.19 mMol/L (12/26/15 12:57 AM) 1.19 mMol/L (12/25/15 5:05 AM) Ca Norm WB [1.05-1.25 mMol/L] HEMATOLOGY 1 2 3 Most recent to oldest [Reference Range]: 8.0 K/CMM (6/15/16 12:57 AM) 10.2 K/CMM (12/25/15 12:47 PM) 15.6 K/CMM *HI* (12/25/15 5:02 AM) WBC [3.7-10.4 K/CMM] 2.33 M/CMM *LOW* (12/26/15 12:57 AM) 2.26 M/CMM *LOW* (12/25/15 12:47 PM) 2.56 M/CMM *LOW* (12/25/15 5:02 AM) RBC [4.20-5.40 M/CMM] 7.9 g/dL *LOW* (12/26/15 12:57 AM) 7.4 g/dL *LOW* (12/25/15 12:47 PM) 8.4 g/dL *LOW* (12/25/15 5:02 AM) Hgb [12.0-16.0 g/dL] 23.2 % *LOW* (12/26/15 12:57 AM) 22.0 % *LOW* (12/25/15 12:47 PM) 25.0 % *LOW* (12/25/15 5:02 AM) Hct [36.0-48.0 %] 99.5 fL *HI* (12/26/15 12:57 AM) 97.1 fL (12/25/15 12:47 PM) 97.6 fL (12/25/15 5:02 AM) MCV [80.0-98.0 fL] 33.7 pg *HI* (12/26/15 12:57 AM) 32.8 pg *HI* (12/25/15 12:47 PM) 32.8 pg *HI* (12/25/15 5:02 AM) MCH [27.0-31.0 pg] 33.8 g/dL (12/26/15 12:57 AM) 33.8 g/dL (12/25/15 12:47 PM) 33.7 g/dL (12/25/15 5:02 AM) MCHC [32.0-36.0 g/dL] 17.6 % *HI* (12/26/15 12:57 AM) 17.6 % *HI* (12/25/15 12:47 PM) 18.1 % *HI* (12/25/15 5:02 AM) RDW [11.5-14.5 %] 279 K/CMM (12/26/15 12:57 AM) 254 K/CMM (12/25/15 12:47 PM) 300 K/CMM (12/25/15 5:02 AM) Platelet [133-450 K/CMM] 8.9 fL (12/26/15 12:57 AM) 9.7 fL (12/25/15 12:47 PM) 9.1 fL (12/25/15 5:02 AM) MPV [7.4-10.4 fL] 81.6 % *HI* (12/26/15 12:57 AM) 90.4 % *HI* (12/25/15 12:47 PM) 92.3 % *HI* (12/25/15 5:02 AM) Segs [45.0-75.0 %] 8.6 % *LOW* (12/26/15 12:57 AM) 3.9 % *LOW* (12/25/15 12:47 PM) 3.4 % *LOW* (12/25/15 5:02 AM) Lymphocytes [20.0-40.0 %] 6.5 % (12/26/15 12:57 AM) 5.1 % (12/25/15 12:47 PM) 4.2 % (12/25/15 5:02 AM) Monocytes [2.0-12.0 %] 2.9 % (12/26/15 12:57 AM) 0.5 % (12/25/15 12:47 PM) Eosinophils [0.0-4.0 %] 0.4 % (12/26/15 12:57 AM) 0.1 % (12/25/15 12:47 PM) 0.1 % (12/25/15 5:02 AM) Basophils [0.0-1.0 %] 6.5 K/CMM (12/26/15 12:57 AM) 9.2 K/CMM *HI* (12/25/15 12:47 PM) 14.4 K/CMM *HI* (12/25/15 5:02 AM) Segs-Bands # [1.5-8.1 K/CMM] 0.7 K/CMM *LOW* (12/26/15 12:57 AM) 0.4 K/CMM *LOW* (12/25/15 12:47 PM) 0.5 K/CMM *LOW* (12/25/15 5:02 AM) Lymphocytes # [1.0-5.5 K/CMM] 0.5 K/CMM (12/26/15 12:57 AM) 0.5 K/CMM (12/25/15 12:47 PM) 0.7 K/CMM (12/25/15 5:02 AM) Monocytes # [0.0-0.8 K/CMM] 0.2 K/CMM (12/26/15 12:57 AM) 0.1 K/CMM (12/25/15 12:47 PM) Eosinophils # [0.0-0.5 K/CMM] Normal (12/25/15 1:36 AM) RBC Morph 1+ *ABN* (12/25/15 12:47 PM) Anisocyte [None Seen] Slight *NA* (12/25/15 12:47 PM) Polychrom Occasional *ABN* (12/25/15 12:47 PM) Spherocyte [None Seen] Peripheral blood smear shows macrocytic anemia with polychromasia and few microspherocytes. Lymphopenia with reactive lymphocytes. no blast seen. platelets are unremarkable. Few hypersegmented neutrophils. clinical correlation is suggested, anemia studies are suggested including vitamin B12/folic acid. CPT 21687 *NA* (12/25/15 12:47 PM) PB Smear Path Normal (12/25/15 12:47 PM) Normal (12/25/15 1:36 AM) Plt Morph 16.2 seconds *HI* (12/25/15 5:02 AM) 15.9 seconds *HI* (12/25/15 1:36 AM) PT [12.0-14.7 seconds] 1.27 *HI* (12/25/15 5:02 AM) 1.24 *HI* (12/25/15 1:36 AM) INR [0.85-1.17] 33.7 seconds (12/25/15 5:02 AM) 38.9 seconds *HI* (12/25/15 1:36 AM) PTT [22.9-35.8 seconds] 97 seconds (12/25/15 1:36 AM) ACT (TEG) Rapid [86-118 seconds] 0.3 minutes *NA* (12/25/15 1:36 AM) Split Point Rapid 0.5 minutes (12/25/15 1:36 AM) R-time Rapid [0.4-0.7 minutes] 0.8 minutes (12/25/15 1:36 AM) K-time Rapid [0.6-2.3 minutes] 81 degrees *HI* (12/25/15 1:36 AM) Angle Rapid [64-80 degrees] 68 mm (12/25/15 1:36 AM) Max Amplitude Rapid [52-71 mm] 10.4 K d/sc (12/25/15 1:36 AM) G-value Rapid [5.0-11.6 K d/sc] 11.0 % 1 *HI* (12/25/15 1:36 AM) Estimated % Lysis Rapid [0.0-7.5 %] 1Result Comment: "Significant Findings called to German Aden_at 12/25/2015 03:00__by RM__.Read Back OK." BACTERIAL - SEROLOGY 1 2 3 Most recent to oldest [Reference Range]: Negative (12/25/15 5:02 AM) MRSA by PCR Immunizations No data available for this section Procedures Procedure Date Related Diagnosis Body Site Tubal ligation 05/13/80 Stent placement Social History Social History Type Response Substance Abuse Use: None. Alcohol Never Smoking Status Never smoker; Exposure to Tobacco Smoke None; Cigarette Smoking Last 365 Days No; Reg Smoking Cessation Counseling No Assessment and Plan Extracted from: Title: NeuroTrauma Follow Up Author: Monserrat Duckworth Date: 12/27/15 Arranged for patient to follow up with [facility] [phone] on January 10, 2016 at 1:30pm. Will remain available to assist as needed. Monserrat Duckworth LMSW [facility]# [id number] [employer]
--- OUTSIDE RECORDS SUMMARY | 2018-06-16 09:04 | XMS REPORT | Continuity of Care Document ---
Author Author [facility] Interface Address Unknown Phone Unavailable Problems Problem Status Onset Date Classification Date Reported Comments Source SDH Active 12/24/2015 [facility] HEAD BLEED Active 12/24/2015 [facility] UNK Active 12/07/2015 [facility] Acid reflux Active Problem 12/29/2015 [facility] Hyperlipidemia Active Problem 12/29/2015 [facility] Hypertension Active Problem 12/29/2015 [facility] Mass of pancreas Resolved Problem 12/29/2015 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 OTHER SPECIFIED DISEASES OF PANCREAS Active [facility] Medications Medication Details Route Status Patient Instructions Ordering Provider Order Date Source Levetiracetam 500 MG Oral Tablet 500 mg=1 tab, PO, Q12H, # 11 tab, 0 Refill(s) Active 12/26/2015 [facility] Lovenox 40 mg, 0.4 mL, Route: SUB-Q, Drug form: INJ, [id number], Dosing Weight 52.182, kg, Start date: 12/26/15 9:00:00 CDT, Duration: 30 day, Stop date: 01/24/16 9:00:00 CDTNotes: (Same as: Lovenox) Inactive 12/26/2015 [facility] Simvastatin 10 mg, 1 tab, Route: PO, Drug form: TAB, Bedtime, Dosing Weight 52.182, kg, Start date: 12/25/15 21:00:00 CDT, Duration: 30 day, Stop date: 01/23/16 21:00:00 CDTNotes: (Same as: Zocor) No Longer Active 12/26/2015 [facility] metoprolol tartrate 12.5 mg, 1 tab, Route: PO, Drug form: TAB, Q12H, Dosing Weight 52.182, kg, Start date: 12/25/15 9:00:00 CDT, Duration: 30 day, Stop date: 01/23/16 21:00:00 CDTNotes: (Same as: Lopressor) 12.5mg=1/4 X 50 mg tab. No Longer Active 12/25/2015 [facility] Saline Flush 0.9% 10 ml, Route: IVP, Drug Form: INJ, Dosing Weight 55, kg, Q12H, Start date: 12/25/15 9:00:00 CDT, Duration: 30 day, Stop date: 01/23/16 21:00:00 CDTNotes: (Same as: BD Posiflush) No Longer Active 12/25/2015 [facility] sennosides, SKILLED NURSING 8.6 mg, 1 tab, Route: PO, Drug Form: TAB, Dosing Weight 55, kg, Q12H, Start date: 12/25/15 9:00:00 CDT, Duration: 30 day, Stop date: 01/23/16 21:00:00 CDTNotes: (Same as: Senokot) No Longer Active 12/25/2015 [facility] Docusate 100 mg, 1 cap, Route: PO, Drug form: CAP, Q12H, Dosing Weight 55, kg, Start date: 12/25/15 9:00:00 CDT, Duration: 30 day, Stop date: 01/23/16 21:00:00 CDTNotes: (Same as: Colace) (Do Not Crush) No Longer Active 12/25/2015 [facility] Levetiracetam 500 mg, 1 tab, Route: PO, Drug form: TAB, Q12H, Dosing Weight 55, kg, Start date: 12/25/15 9:00:00 CDT, Stop date: 12/31/15 23:59:00 CDTNotes: (Same as:Keppra) No Longer Active 12/25/2015 [facility] Protonix 40 mg, 1 tab, Route: PO, Drug form: ECTAB, Before Breakfast, Dosing Weight 52.182, kg, Start date: 12/25/15 7:30:00 CDT, Duration: 30 day, Stop date: 01/23/16 7:30:00 CDTNotes: Tablet should not be c hewed or crushed. (Same as: Protonix) No Longer Active 12/25/2015 [facility] Calcium Carbonate 500 MG Chewable Tablet 1,000 mg, 2 tab, Route: PO, Drug form: CHEWTAB, PRN, Dosing Weight 52.182, kg, PRN Abnormal Lab Result, FOR ICU USE ONLY, Start date: 12/25/15 6:31:00 CDT, Duration: 30 day, Stop date: 01/24/16 6:30:00 CDTNotes: (Same As: Tums) Calcium Carbonate 500 ga=404 mg elemental calcium Dose= mg calcium carbonate ( mg elemental calcium) No Longer Active 12/25/2015 [facility] Magnesium Sulfate 2 gm, 50 mL, Route: IVPB, Drug form: INJ, PRN, Dosing Weight 52.182, kg, PRN Abnormal Lab Result, Start date: 12/25/15 6:31:00 CDT, Duration: 30 day, Stop date: 01/24/16 6:30:00 CDT, FOR ICU USE ONLYNotes: WASTE: F/P - Sink; E - Municipal Trash Bin No Longer Active 12/25/2015 [facility] Magnesium Oxide 800 mg, 2 tab, Route: PO, Drug form: TAB, PRN, Dosing Weight 52.182, kg, PRN Abnormal Lab Result, FOR ICU USE ONLY, Start date: 12/25/15 6:31:00 CDT, Duration: 30 day, Stop date: 01/24/16 6:30:00 CDTNot es: (Same as: Mag-Ox 400) Magnesium oxide [id number] elemental magnesium Dose=____mg magnesium oxide (___mg elemental magnesium) No Longer Active 12/25/2015 [facility] Calcium Gluconate 1 gm, 10 mL, Route: IVPB, PRN, Dosing Weight 52.182, kg, PRN Abnormal Lab Result, Start date: 12/25/15 6:31:00 CDT, Duration: 30 day, Stop date: 01/24/16 6:30:00 CDT, FOR ICU USE ONLYNotes: WASTE: F/P - Sink; E - Municipal Trash Bin No Longer Active 12/25/2015 [facility] Neutra-Phos 2 pkt, Route: PO, Drug Form: PDR/REC, Dosing Weight 52.182, kg, PRN, PRN Abnormal Lab Result, FOR ICU USE ONLY, Start date: 12/25/15 6:31:00 CDT, Duration: 30 day, Stop date: 01/24/16 6:30:00 CDTNotes: (Same as: Neutra-Phos) Each 1.25 gm pkt has 250mg phosphorous. Mix w/2.5oz water and stir. No Longer Active 12/25/2015 [facility] potassium chloride 20 mEq, 100 mL, Route: IVPB, Drug form: INJ, PRN, Dosing Weight 52.182, kg, PRN Abnormal Lab Result, Via central line, Start date: 12/25/15 6:31:00 CDT, Duration: 30 day, Stop date: 01/24/16 6:30:00 CDT, FOR ICU USE ONLYNotes: (Same as: KCL) Infuse no faster than 10 mEq/hr if given peripherally. No Longer Active 12/25/2015 [facility] sodium phosphate + sodium chloride 0.9% INJ 250 mL 15 mmol, 5 mL, Route: IVPB, Drug form: INJ, PRN, Dosing Weight 52.182, kg, PRN Abnormal Lab Result, Start date: 12/25/15 6:31:00 CDT, Duration: 30 day, Stop date: 01/24/16 6:30:00 CDT, FOR ICU USE ONLY No Longer Active 12/25/2015 [facility] potassium phosphate + sodium chloride 0.9% INJ 250 mL 15 mmol, 5 mL, Route: IVPB, Drug form: INJ, PRN, Dosing Weight 52.182, kg, PRN Abnormal Lab Result, Start date: 12/25/15 6:31:00 CDT, Duration: 30 day, Stop date: 01/24/16 6:30:00 CDT, FOR ICU USE ONLYNotes: (Same as: K Phosphate.) 1 mMol phoshate has 1.47 mEq potassium Infuse over 4 hours No Longer Active 12/25/2015 [facility] Zofran 4 mg, Route: IVP, Drug form: INJ, ONCE, Dosing Weight 55, kg, Start date: 12/25/15 4:40:00 CDT, Stop date: 12/25/15 4:40:00 CDT Inactive 12/25/2015 [facility] Dextrose 50% Syringe 6.25 gm, 12.5 mL, Route: IVP, Drug Form: INJ, Dosing Weight 55, kg, PRN, PRN Abnormal Lab Result, Start date: 12/25/15 2:09:00 CDT, Duration: 30 day, Stop date: 01/24/16 2:08:00 CDT No Longer Active 12/25/2015 [facility] Regular Insulin, Human 100 UNT/ML Injectable Solution 3 unit, 0.03 mL, Route: SUB-Q, Drug form: SOLN, PRN, Dosing Weight 55, kg, PRN Abnormal Lab Result, Start date: 12/25/15 2:09:00 CDT, Duration: 30 day, Stop date: 01/24/16 2:08:00 CDTNotes: (Same as: Humulin R) Roll in palms of hands gently; Do not shake vigorously. "single patient use only" (Restricted to patients requiring a dose > 60 units) WASTE: F/P - Black; E - Municipal Trash Bin Stable for 28 days at room temperature Expires in days from Date No Longer Active 12/25/2015 [facility] Saline Flush 0.9% 10 ml, Route: IVP, Drug Form: INJ, Dosing Weight 55, kg, PRN, PRN Line Flush, Start date: 12/25/15 2:09:00 CDT, Duration: 30 day, Stop date: 01/24/16 2:08:00 CDTNotes: (Same as: BD Posiflush) No Longer Active 12/25/2015 [facility] Ondansetron 4 mg, 2 mL, Route: IVP, Drug form: INJ, Q8H, Dosing Weight 55, kg, PRN Nausea & Vomiting, Start date: 12/25/15 2:09:00 CDT, Duration: 30 day, Stop date: 01/24/16 2:08:00 CDTNotes: (Same as: Zofran) MEDICATION WASTE Product Size: 4 mg Product Wasted: __0_ mg No Longer Active 12/25/2015 [facility] Bisacodyl 10 mg, 1 supp, Route: MI, Drug form: SUPP, Daily, Dosing Weight 55, kg, PRN Constipation, Start date: 12/25/15 2:09:00 CDT, Duration: 30 day, Stop date: 01/24/16 2:08:00 CDTNotes: (Same As: Dulcolax, Bisco-Lax) No Longer Active 12/25/2015 [facility] Levetiracetam 1,000 mg, Route: IVPB, Drug form: INJ, ONCE, Dosing Weight 55, kg, Start date: 12/25/15 2:09:00 CDT, Stop date: 12/25/15 2:09:00 CDTNotes: Same as Keppra Mix with 100 mL NS, LR or D5W MEDICATION WASTE Product Size: 500 mg Product Wasted: __0_ mg Inactive 12/25/2015 [facility] Acetaminophen 325 MG / Hydrocodone Bitartrate 5 MG Oral Tablet 1 tab, Route: PO, Drug Form: TAB, Dosing Weight 55, kg, Q4H, PRN Pain Score 1-3, Start date: 12/25/15 2:09:00 CDT, Duration: 30 day, Stop date: 01/24/16 2:08:00 CDTNotes: (Same as: Dubberly 325/5) Do not exceed 4gm/day of acetaminophen. Inactive 12/25/2015 [facility] Acetaminophen 325 MG / Hydrocodone Bitartrate 10 MG Oral Tablet 1 tab, Route: PO, Drug Form: TAB, Dosing Weight 55, kg, Q4H, PRN Pain Score 4-6, Start date: 12/25/15 2:09:00 CDT, Duration: 30 day, Stop date: 01/24/16 2:08:00 CDTNotes: Do not exceed 4gm/day of acetaminophen. (Same as: Dubberly 325/10) Inactive 12/25/2015 [facility] Sodium Chloride 0.154 MEQ/ML Injectable Solution 1,000 mL, Rate: 75 ml/hr, Infuse over: 13.3 hr, Route: IV, Dosing Weight 55 kg, Total Volume: 1,000, Start date: 12/25/15 2:09:00 CDT, Stop date: 01/24/16 2:08:00 CDT No Longer Active 12/25/2015 [facility] Saline Flush 0.9% 10 mL, Route: IVP, Drug Form: INJ, Dosing Weight 55, kg, PRN, PRN Line Flush, Start date: 12/25/15 1:11:00 CDT, Duration: 30 day, Stop date: 01/24/16 1:10:00 CDTNotes: Same as: BD Posiflush Sterile No Longer Active 12/25/2015 [facility] Sodium Chloride 0.154 MEQ/ML Injectable Solution 1,000 mL, Rate: 25 ml/hr, Infuse over: 40 hr, Route: IV, Dosing Weight 53.636 kg, Total Volume: 1,000, Start date: 12/21/15 11:24:00 CDT, Duration: 30 day, Stop date: 01/20/16 11:23:00 CDT Inactive 12/21/2015 [facility] calcium calcium, 1 tab, PO, BID, Refill(s) 0 Active 12/17/2015 [facility] Fish Oil PO, 0 Refill(s) Active 12/17/2015 [facility] Aspirin 81 MG Enteric Coated Tablet 81 mg=1 tab, PO, Daily, # 90 tab, 3 Refill(s) Active 12/17/2015 [facility] Fenofibrate 54 MG Oral Tablet 54 mg=1 tab, PO, Daily, # 30 tab, 0 Refill(s) Active 12/17/2015 [facility] simvastatin 10 mg oral tablet 10 mg=1 tab, PO, Bedtime, # 30 tab, 0 Refill(s) Active 12/17/2015 [facility] pantoprazole 40 mg oral enteric coated tablet 40 mg=1 tab, PO, Daily, # 30 tab, 0 Refill(s) Active 12/17/2015 [facility] hydrochlorothiazide 12.5 mg oral tablet 12.5 mg=1 tab, PO, Daily, # 30 tab, 0 Refill(s) Active 12/17/2015 [facility] metoprolol 50 mg oral tablet, extended release 50 mg=1 tab, PO, Daily, # 30 tab, 0 Refill(s) Active 12/17/2015 [facility] Allergies, Adverse Reactions, Alerts Substance Category Reaction Severity Reaction type Status Date Reported Comments Source Immunizations Immunization Date Given Site Status Last Updated Comments Source Results Order Name Results Value Reference Range Date Interpretation Comments Source CHEM PANEL Magnesium Lvl 1.8 mg/dL 1.8 - 2.4 12/26/2015 [facility] CHEM PANEL eGFR 70 mL/min/1.73m2 12/26/2015 Result Comment: The eGFR is calculated using the [...] from the National Kidney Disease Education Program (NKDEP) which additionally recommends that when the eGFR is used in patients with extremes of body mass index for purposes of drug dosing, the eGFR should be multiplied by the estimated BMI. [facility] CHEM PANEL Creatinine Lvl 0.83 mg/dL 0.50 - 1.40 12/26/2015 [facility] CHEM PANEL Sodium Lvl 141 meq/L 135 - 145 12/26/2015 [facility] CHEM PANEL Glucose Lvl 93 mg/dL 70 - 99 12/26/2015 [facility] CHEM PANEL BUN 17 mg/dL 7 - 22 12/26/2015 [facility] CHEM PANEL Potassium Lvl 3.5 meq/L 3.5 - 5.1 12/26/2015 [facility] CHEM PANEL Calcium Lvl 8.7 mg/dL 8.5 - 10.5 12/26/2015 [facility] CHEM PANEL Chloride Lvl 109 meq/L 95 - 109 12/26/2015 [facility] CHEM PANEL CO2 23 meq/L 24 - 32 12/26/2015 [facility] CHEM PANEL AGAP 12.5 meq/L 10.0 - 20.0 12/26/2015 [facility] CHEM PANEL AST 108 unit/L 0 - 37 12/26/2015 [facility] CHEM PANEL ALT 137 unit/L 0 - 65 12/26/2015 [facility] CHEM PANEL Albumin Lvl 2.2 g/dL 3.5 - 5.0 12/26/2015 [facility] CHEM PANEL Total Protein 5.7 g/dL 6.4 - 8.4 12/26/2015 [facility] CHEM PANEL Bili Total 3.8 mg/dL 0.2 - 1.3 12/26/2015 [facility] CHEM PANEL Bili Direct 3.0 mg/dL 0.0 - 0.3 12/26/2015 [facility] CHEM PANEL Alk Phos 133 unit/L 39 - 136 12/26/2015 [facility] CHEM PANEL Bili Indirect 0.8 mg/dL 0.0 - 1.0 12/26/2015 [facility] CHEM PANEL A/G Ratio 0.6 0.7 - 1.6 12/26/2015 [facility] CHEM PANEL Globulin 3.5 g/dL 2.0 - 4.0 12/26/2015 [facility] CHEM PANEL Phosphorus 1.6 mg/dL 2.5 - 4.5 12/26/2015 [facility] HEMATOLOGY WBC 8.0 K/CMM 3.7 - 10.4 12/26/2015 [facility] HEMATOLOGY MPV 8.9 fL 7.4 - 10.4 12/26/2015 [facility] HEMATOLOGY RDW 17.6 % 11.5 - 14.5 12/26/2015 [facility] HEMATOLOGY Platelet 279 K/CMM 133 - 450 12/26/2015 [facility] HEMATOLOGY RBC 2.33 M/CMM 4.20 - 5.40 12/26/2015 [facility] HEMATOLOGY Hgb 7.9 g/dL 12.0 - 16.0 12/26/2015 [facility] HEMATOLOGY Hct 23.2 % 36.0 - 48.0 12/26/2015 [facility] HEMATOLOGY MCV 99.5 fL 80.0 - 98.0 12/26/2015 [facility] HEMATOLOGY MCH 33.7 pg 27.0 - 31.0 12/26/2015 [facility] HEMATOLOGY MCHC 33.8 g/dL 32.0 - 36.0 12/26/2015 [facility] HEMATOLOGY Monocytes 6.5 % 2.0 - 12.0 12/26/2015 [facility] HEMATOLOGY Lymphocytes 8.6 % 20.0 - 40.0 12/26/2015 [facility] HEMATOLOGY Basophils 0.4 % 0.0 - 1.0 12/26/2015 [facility] HEMATOLOGY Lymphocytes # 0.7 K/CMM 1.0 - 5.5 12/26/2015 [facility] HEMATOLOGY Eosinophils # 0.2 K/CMM 0.0 - 0.5 12/26/2015 [facility] HEMATOLOGY Monocytes # 0.5 K/CMM 0.0 - 0.8 12/26/2015 [facility] HEMATOLOGY Eosinophils 2.9 % 0.0 - 4.0 12/26/2015 [facility] HEMATOLOGY Segs-Bands # 6.5 K/CMM 1.5 - 8.1 12/26/2015 [facility] HEMATOLOGY Segs 81.6 % 45.0 - 75.0 12/26/2015 [facility] PARATHYROID PROFILE Ca Ion WB 1.17 mMol/L 1.05 - 1.25 12/26/2015 [facility] PARATHYROID PROFILE Ca Norm WB 1.19 mMol/L 1.05 - 1.25 12/26/2015 [facility] ANEMIA STUDY Ferritin Lvl 560 ng/mL 5 - 204 12/25/2015 [facility] ANEMIA STUDY % S[place] Fe 36 % 12 - 57 12/25/2015 [facility] ANEMIA STUDY UIBC 123 ug/dl 110 - 370 12/25/2015 [facility] ANEMIA STUDY Iron 69 ug/dl 30 - 160 12/25/2015 [facility] ANEMIA STUDY TIBC 192 ug/dl 228 - 428 12/25/2015 [facility] CARDIAC ENZYMES Troponin-T null 0.000 - 0.100 12/25/2015 [facility] CARDIAC ENZYMES Total CK 31 unit/L 12 - 191 12/25/2015 [facility] CARDIAC ENZYMES Troponin-I 0.02 ng/mL 0.00 - 0.40 12/25/2015 [facility] CHEM PANEL eGFR 69 mL/min/1.73m2 12/25/2015 Result Comment: The eGFR is calculated using the [...] from the National Kidney Disease Education Program (NKDEP) which additionally recommends that when the eGFR is used in patients with extremes of body mass index for purposes of drug dosing, the eGFR should be multiplied by the estimated BMI. [facility] CHEM PANEL Calcium Lvl 9.0 mg/dL 8.5 - 10.5 12/25/2015 [facility] CHEM PANEL Potassium Lvl 4.7 meq/L 3.5 - 5.1 12/25/2015 [facility] CHEM PANEL AGAP 11.7 meq/L 10.0 - 20.0 12/25/2015 [facility] CHEM PANEL Chloride Lvl 109 meq/L 95 - 109 12/25/2015 [facility] CHEM PANEL CO2 23 meq/L 24 - 32 12/25/2015 [facility] CHEM PANEL Glucose Lvl 89 mg/dL 70 - 99 12/25/2015 [facility] CHEM PANEL Sodium Lvl 139 meq/L 135 - 145 12/25/2015 [facility] CHEM PANEL BUN 18 mg/dL 7 - 22 12/25/2015 [facility] CHEM PANEL Creatinine Lvl 0.84 mg/dL 0.50 - 1.40 12/25/2015 [facility] CHEM PANEL LDH 155 unit/L 98 - 192 12/25/2015 [facility] CHEM PANEL Bili Indirect 0.5 mg/dL 0.0 - 1.0 12/25/2015 [facility] CHEM PANEL A/G Ratio 0.7 0.7 - 1.6 12/25/2015 [facility] CHEM PANEL Globulin 3.6 g/dL 2.0 - 4.0 12/25/2015 [facility] CHEM PANEL Total Protein 6.0 g/dL 6.4 - 8.4 12/25/2015 [facility] CHEM PANEL Albumin Lvl 2.4 g/dL 3.5 - 5.0 12/25/2015 [facility] CHEM PANEL Alk Phos 152 unit/L 39 - 136 12/25/2015 [facility] CHEM PANEL Bili Direct 3.7 mg/dL 0.0 - 0.3 12/25/2015 [facility] CHEM PANEL Bili Total 4.2 mg/dL 0.2 - 1.3 12/25/2015 [facility] CHEM PANEL AST 142 unit/L 0 - 37 12/25/2015 [facility] CHEM PANEL ALT 161 unit/L 0 - 65 12/25/2015 [facility] HEMATOLOGY Lymphocytes # 0.4 K/CMM 1.0 - 5.5 12/25/2015 [facility] HEMATOLOGY Segs-Bands # 9.2 K/CMM 1.5 - 8.1 12/25/2015 [facility] HEMATOLOGY Monocytes 5.1 % 2.0 - 12.0 12/25/2015 [facility] HEMATOLOGY Basophils 0.1 % 0.0 - 1.0 12/25/2015 [facility] HEMATOLOGY Eosinophils 0.5 % 0.0 - 4.0 12/25/2015 [facility] HEMATOLOGY Polychrom Slight 12/25/2015 [facility] HEMATOLOGY Anisocyte 1+ *ABN* (12/25/15 12:47 PM) None Seen 12/25/2015 [facility] HEMATOLOGY Spherocyte Occasional *ABN* (12/25/15 12:47 PM) None Seen 12/25/2015 [facility] HEMATOLOGY Eosinophils # 0.1 K/CMM 0.0 - 0.5 12/25/2015 [facility] HEMATOLOGY Monocytes # 0.5 K/CMM 0.0 - 0.8 12/25/2015 [facility] HEMATOLOGY Plt Morph Normal (12/25/15 12:47 PM) 12/25/2015 [facility] HEMATOLOGY Lymphocytes 3.9 % 20.0 - 40.0 12/25/2015 [facility] HEMATOLOGY Segs 90.4 % 45.0 - 75.0 12/25/2015 [facility] HEMATOLOGY PB Smear Path Peripheral blood smear shows macrocytic anemia with polychromasia and few microspherocytes. Lymphopenia with reactive lymphocytes. no blast seen. platelets are unremarkable. Few hypersegmented neutrophils.clinical correlation is suggested, anemia studies are suggested including vitamin B12/folic acid.CPT [id number] 12/25/2015 [facility] HEMATOLOGY MPV 9.7 fL 7.4 - 10.4 12/25/2015 [facility] HEMATOLOGY RDW 17.6 % 11.5 - 14.5 12/25/2015 [facility] HEMATOLOGY Platelet 254 K/CMM 133 - 450 12/25/2015 [facility] HEMATOLOGY MCHC 33.8 g/dL 32.0 - 36.0 12/25/2015 [facility] HEMATOLOGY MCV 97.1 fL 80.0 - 98.0 12/25/2015 [facility] HEMATOLOGY MCH 32.8 pg 27.0 - 31.0 12/25/2015 [facility] HEMATOLOGY Hgb 7.4 g/dL 12.0 - 16.0 12/25/2015 [facility] HEMATOLOGY WBC 10.2 K/CMM 3.7 - 10.4 12/25/2015 [facility] HEMATOLOGY RBC 2.26 M/CMM 4.20 - 5.40 12/25/2015 [facility] HEMATOLOGY Hct 22.0 % 36.0 - 48.0 12/25/2015 [facility] CHEM PANEL Phosphorus 2.5 mg/dL 2.5 - 4.5 12/25/2015 [facility] CHEM PANEL Magnesium Lvl 2.0 mg/dL 1.8 - 2.4 12/25/2015 [facility] PARATHYROID PROFILE Ca Norm WB 1.19 mMol/L 1.05 - 1.25 12/25/2015 [facility] PARATHYROID PROFILE Ca Ion WB 1.19 mMol/L 1.05 - 1.25 12/25/2015 [facility] BACTERIAL - SEROLOGY MRSA by PCR Negative (12/25/15 5:02 AM) 12/25/2015 [facility] CARDIAC ENZYMES Troponin-T null 0.000 - 0.100 12/25/2015 [facility] CARDIAC ENZYMES Troponin-I 0.02 ng/mL 0.00 - 0.40 12/25/2015 [facility] CARDIAC ENZYMES Total CK 46 unit/L 12 - 191 12/25/2015 [facility] CHEM PANEL eGFR 55 mL/min/1.73m2 12/25/2015 Result Comment: The eGFR is calculated using the [...] from the National Kidney Disease Education Program (NKDEP) which additionally recommends that when the eGFR is used in patients with extremes of body mass index for purposes of drug dosing, the eGFR should be multiplied by the estimated BMI. [facility] CHEM PANEL Sodium Lvl 138 meq/L 135 - 145 12/25/2015 [facility] CHEM PANEL Potassium Lvl 3.0 meq/L 3.5 - 5.1 12/25/2015 Result Comment: Critical Result(s) called to yousif zhao at 12/25/2015 06:25 by harpreet. Read back OK. [facility] CHEM PANEL AGAP 15.0 meq/L 10.0 - 20.0 12/25/2015 [facility] CHEM PANEL Calcium Lvl 9.2 mg/dL 8.5 - 10.5 12/25/2015 [facility] CHEM PANEL Chloride Lvl 104 meq/L 95 - 109 12/25/2015 [facility] CHEM PANEL CO2 22 meq/L 24 - 32 12/25/2015 [facility] CHEM PANEL Creatinine Lvl 1.01 mg/dL 0.50 - 1.40 12/25/2015 [facility] [facility] CHEM PANEL BUN 18 mg/dL 7 - 22 12/25/2015 [facility] CHEM PANEL Glucose Lvl 118 mg/dL 70 - 99 12/25/2015 [facility] HEMATOLOGY Monocytes 4.2 % 2.0 - 12.0 12/25/2015 [facility] HEMATOLOGY Basophils 0.1 % 0.0 - 1.0 12/25/2015 [facility] HEMATOLOGY Lymphocytes # 0.5 K/CMM 1.0 - 5.5 12/25/2015 [facility] HEMATOLOGY Segs-Bands # 14.4 K/CMM 1.5 - 8.1 12/25/2015 [facility] HEMATOLOGY Monocytes # 0.7 K/CMM 0.0 - 0.8 12/25/2015 [facility] HEMATOLOGY Lymphocytes 3.4 % 20.0 - 40.0 12/25/2015 [facility] HEMATOLOGY Segs 92.3 % 45.0 - 75.0 12/25/2015 [facility] HEMATOLOGY INR 1.27 0.85 - 1.17 12/25/2015 [facility] HEMATOLOGY PT 16.2 s 12.0 - 14.7 12/25/2015 [facility] HEMATOLOGY PTT 33.7 s 22.9 - 35.8 12/25/2015 [facility] HEMATOLOGY Hct 25.0 % 36.0 - 48.0 12/25/2015 [facility] HEMATOLOGY MCV 97.6 fL 80.0 - 98.0 12/25/2015 [facility] HEMATOLOGY RDW 18.1 % 11.5 - 14.5 12/25/2015 [facility] HEMATOLOGY Platelet 300 K/CMM 133 - 450 12/25/2015 [facility] HEMATOLOGY MCHC 33.7 g/dL 32.0 - 36.0 12/25/2015 [facility] HEMATOLOGY MCH 32.8 pg 27.0 - 31.0 12/25/2015 [facility] HEMATOLOGY MPV 9.1 fL 7.4 - 10.4 12/25/2015 [facility] HEMATOLOGY WBC 15.6 K/CMM 3.7 - 10.4 12/25/2015 [facility] HEMATOLOGY Hgb 8.4 g/dL 12.0 - 16.0 12/25/2015 [facility] HEMATOLOGY RBC 2.56 M/CMM 4.20 - 5.40 12/25/2015 [facility] BLOOD BANK RESULTS ABO/Rh A NEG 12/25/2015 [facility] BLOOD BANK RESULTS Antibody Scrn Negative (12/25/15 1:36 AM) 12/25/2015 [facility] CHEM PANEL Lactic Acid Lvl 1.2 mMol/L 0.5 - 2.2 12/25/2015 [facility] HEMATOLOGY K-time Rapid 0.8 min 0.6 - 2.3 12/25/2015 [facility] HEMATOLOGY Max Amplitude Rapid 68 mm 52 - 71 12/25/2015 [facility] HEMATOLOGY Angle Rapid 81 degrees 64 - 80 12/25/2015 [facility] HEMATOLOGY G-value Rapid 10.4 K d/sc 5.0 - 11.6 12/25/2015 [facility] HEMATOLOGY R-time Rapid 0.5 min 0.4 - 0.7 12/25/2015 [facility] HEMATOLOGY ACT (TEG) Rapid 97 s 86 - 118 12/25/2015 [facility] HEMATOLOGY Split Point Rapid 0.3 min 12/25/2015 [facility] HEMATOLOGY Estimated % Lysis Rapid 11.0 % 0.0 - 7.5 12/25/2015 Result Comment: "Significant Findings called to German Stewartat 12/25/2015 03:00__by RM__.Read Back OK." [facility] HEMATOLOGY PT 15.9 s 12.0 - 14.7 12/25/2015 [facility] HEMATOLOGY INR 1.24 0.85 - 1.17 12/25/2015 [facility] HEMATOLOGY PTT 38.9 s 22.9 - 35.8 12/25/2015 [facility] HEMATOLOGY RBC Morph Normal (12/25/15 1:36 AM) 12/25/2015 [facility] HEMATOLOGY Plt Morph Normal (12/25/15 1:36 AM) 12/25/2015 [facility] Brain wo contrast CT Brain wo contrast CT EXAM: CT HEAD WITHOUT CONTRAST DATE: 12/25/2015 312 AM CDT INDICATION: 75 years old Female patient with history of Pain Post Trauma. TECHNIQUE: Multiple axial images were obtained through the head from vertex to the skull base. Axial bone algorithm reconstruction images are provided. COMPARISON: Prior CT scan of the head dated 12/24/2015 at 2301 hours DISCUSSION: Again identified small amount of extra-axial/subdural hemorrhage lateral to the left frontal operculum. No definite new parenchymal abnormality or new hemorrhage is identified. There is no significant mass effect and midline shift. Overall ventricles are stable in size and configuration. Basal cisterns are grossly preserved. There is no evidence of downward herniation. No interval significant adverse changes in visualized paranasal sinuses, orbits, mastoid cavities and calvarium. IMPRESSION: 1. Stable exam without interval adverse change. 2. Stable small amount of extra-axial/subdural hemorrhage lateral to the left frontal operculum. These findings are in agreement with preliminary report made by tube station attendant radiology physician assistant: Creator: Claire López Date: Dec 25, 2015 03:31:16 Subject: No significant change in small left subdural hematoma. No new hemorrhage. 12/25/2015 - - Read by: Meño Joshi MD Dictated Date/time: 12/25/15 07:12 Electronically Signed by: Meño Joshi MD 12/25/15 07:14 FINAL REPORT [facility] CHEM PANEL eGFR 46 mL/min/1.73m2 12/17/2015 Result Comment: The eGFR is calculated using the [...] from the National Kidney Disease Education Program (NKDEP) which additionally recommends that when the eGFR is used in patients with extremes of body mass index for purposes of drug dosing, the eGFR should be multiplied by the estimated BMI. [facility] CHEM PANEL Potassium Lvl 3.3 meq/L 3.5 - 5.1 12/17/2015 [facility] CHEM PANEL Chloride Lvl 100 meq/L 95 - 109 12/17/2015 [facility] CHEM PANEL Sodium Lvl 137 meq/L 135 - 145 12/17/2015 [facility] CHEM PANEL AGAP 13.3 meq/L 10.0 - 20.0 12/17/2015 [facility] CHEM PANEL Glucose Lvl 115 mg/dL 70 - 99 12/17/2015 [facility] CHEM PANEL CO2 27 meq/L 24 - 32 12/17/2015 [facility] CHEM PANEL Calcium Lvl 9.1 mg/dL 8.5 - 10.5 12/17/2015 [facility] CHEM PANEL BUN 20 mg/dL 7 - 22 12/17/2015 [facility] CHEM PANEL Creatinine Lvl 1.16 mg/dL 0.50 - 1.40 12/17/2015 [facility] Vital Signs Vital Sign Value Date Comments Source Systolic (mm Hg) 149 12/26/2015 [facility] Diastolic (mm Hg) 68 12/26/2015 [facility] Respitory Rate 21 12/26/2015 [facility] Respitory Rate 25 12/26/2015 [facility] Systolic (mm Hg) 130 12/26/2015 [facility] Diastolic (mm Hg) 59 12/26/2015 [facility] Systolic (mm Hg) 134 12/26/2015 [facility] Diastolic (mm Hg) 63 12/26/2015 [facility] Respitory Rate 22 12/26/2015 [facility] BMI Calculated 19.75 12/25/2015 [facility] Weight 52.182 12/25/2015 [facility] Height 162.56 cm 12/25/2015 [facility] Weight 55 12/25/2015 [facility] BMI Calculated 20.81 12/25/2015 [facility] Height 162.56 cm 12/25/2015 [facility] Temperature Oral (F) 98.1 F 12/25/2015 [facility] Heart Rate 65 12/25/2015 [facility] Systolic (mm Hg) 138 12/21/2015 [facility] Diastolic (mm Hg) 68 12/21/2015 [facility] Respitory Rate 16 12/21/2015 [facility] Systolic (mm Hg) 125 12/21/2015 [facility] Diastolic (mm Hg) 58 12/21/2015 [facility] Respitory Rate 16 12/21/2015 [facility] Systolic (mm Hg) 123 12/21/2015 [facility] Diastolic (mm Hg) 56 12/21/2015 [facility] Respitory Rate 16 12/21/2015 [facility] Heart Rate 60 12/21/2015 [facility] Heart Rate 64 12/17/2015 [facility] Temperature Oral (F) 98.2 F 12/17/2015 [facility] Height 162.56 cm 12/17/2015 [facility] BMI Calculated 20.3 12/17/2015 [facility] Weight 53.636 12/17/2015 [facility] Encounters Location Location Details Encounter Type Encounter Number Reason For Visit Attending Provider ADM Date DC Date Status Source [facility] Bedded Outpatient [id number] Yousif Tomaschuckie 12/21/2015 12/21/2015 [facility] Inpatient [id number] Garcíasurjit George 12/25/2015 12/26/2015 [facility] Procedures Procedure Code Date Perfomer Comments Source Tubal ligation [id number] 05/13/1980 [facility] Tubal ligation [id number] 05/13/1980 [facility] Stent placement [id number] [facility] Stent placement [id number] [facility]
[2018-06-16] MEDS: SODIUM CHLORIDE 0.9% 1000ML 1,000 ML IV SCH ×2 (10:11→17:10)
--- OUTSIDE RECORDS SUMMARY | 2018-06-16 10:17 | XMS REPORT | Clinical Summary ---
Author Author [employer] [facility] [employer] Address Unknown Phone Unavailable Care Team Providers [facility] Name Role Phone Chase Gupta MD PCP [...] Plan / Group MEDICARE MEDICARE xxxxxxxxxx Medicare DRU[place], [place] PART A [place] B [facility] xxxxxxxxx HMO/PPO THCARE CHOICE/CHO ICE + Advance Directives Patient has advance care planning documents on file. For more information, jasson montilla contact: Liam Cox [phone] [facility] [place] [address]
[2018-06-16 13:04] LABS: BASOPHILS % 0.5 % (0.0-1.0); EOSINOPHILS % 0.5 % (0.0-6.0); HEMOGLOBIN 9.3 g/dL (12.0-16.0); LYMPHOCYTES # (AUTO) 0.6 (1.0-3.2); LYMPHOCYTES % 29.4 % (18.0-39.1); MEAN CORPUSCULAR HEMOGLOBIN 33.3 pg (28-32); MEAN CORPUSCULAR HGB CONC 33.2 g/dL (31-35); MEAN CORPUSCULAR VOLUME 100.4 fL (81-99); MONOCYTES # (AUTO) 0.1 (0.2-0.8); MONOCYTES % 2.5 % (4.4-11.3); NEUTROPHILS # (AUTO) 1.4 (2.1-6.9); NEUTROPHILS % 66.6 % (38.7-80.0); PLATELET COUNT 837 x10e3/uL (140-360); RED BLOOD COUNT 2.79 x10e6/uL (3.6-5.1); RED CELL DISTRIBUTION WIDTH 18.6 % (11.7-14.4)
[2018-06-16 13:18] LABS: ALBUMIN 3.7 g/dL (3.5-5.0); ALBUMIN/GLOBULIN RATIO 0.9 (0.8-2.0); ANION GAP 19.1 mmol/L (8-16); CREATININE, SERUM 2.88 mg/dL (0.57-1.11); MAGNESIUM 2.6 MG/DL (1.3-2.1)
[2018-06-16 13:19] LABS: POTASSIUM 5.1 mmol/L (3.5-5.1)
[2018-06-16 13:44] LABS: ANISOCYTOSIS SLIGHT; BLAST CELLS % MANUAL 2; HYPOCHROMASIA SLIGHT; LYMPHOCYTES % (MANUAL) 23 % (19-48); MONOCYTES % (MANUAL) 3 % (3.4-9.0); NEUTROPHILS % (MANUAL) 72 % (40-74); PLATELET ESTIMATE MODERATELY INCREASED; PLATELET MORPHOLOGY COMMENT NORMAL; POIKILOCYTOSIS SLIGHT; RBC MORPHOLOGY COMMENT NORMAL
[2018-06-16 16:00] VITALS: BP 141/67
[2018-06-16] MEDS ORDERED: METOCLOPRAMIDE HCL 10 MG/2ML VIAL IV PRN (18:30)
[2018-06-16] MEDS ORDERED: SODIUM CHLORIDE 0.9% 1000ML 1,000 ML IV STA (19:17)
[2018-06-16] MEDS ORDERED: SOD POLYSTYRENE SULFONATE SUSP 15 GM/60 ML BTL PO ONE (19:45)
--- NOTE | 2018-06-16 20:06 | Consultation ---
DATE OF CONSULTATION: June 16, 2018 REASON FOR CONSULTATION: Management of kidney failure and electrolyte imbalance. History predominantly from the patient and the patient's family members. HISTORY OF PRESENT ILLNESS: A 78-year-old lady with history of pancreatitis and required Whipple's procedure, history of pancreatic cancer, history of pneumonia, chronic kidney disease, stage 3, history of obstructive jaundice, hypertension. He is currently laying supine. Had some nausea, resolved. Denies shortness of breath, fever or chills. Most recent complaints are weakness. She has been maintained on hydrochlorothiazide, lisinopril at home. ALLERGIES: DENIES ANY DRUG ALLERGIES. At the moment, she is on normal saline 125 mL an hour. LABORATORY DATA: Sodium 131, potassium 5.1, chloride 101, bicarbonate 16, BUN 62, creatinine 2.88. PHYSICAL EXAMINATION: GENERAL: A thin-built female, awake, alert and oriented times 3, in no apparent distress. Denies any shortness of breath. No nausea or vomiting. VITALS: Blood pressure , pulse rate 64. Afebrile. Respiratory rate 18. Oxygen saturation 100%. HEAD AND NECK: Cornea clear. Oral mucosa moist. Neck veins flat. LUNGS: Supine exam but relatively clear. HEART: S1, S2 audible. ABDOMEN: Otherwise soft and nontender. LOWER EXTREMITY EXAMINATION: Shows no edema. IMPRESSION: Evidence of severe dehydration. Relatively normal anion gap. Hyperkalemic. Metabolic acidosis with hyponatremia. White count is low. Defer to Dr. Granados. Blood pressure appears stable. Abdomen was relatively asymptomatic. PLAN: Plan on following up on the kidney ultrasound which has been ordered. Will obtain uric acid level. Will discontinue existing IV fluids. Give her a liter of normal saline bolus. Will give her Kayexalate and lactulose. Monitor patient's kidney function and urine output with you. Further recommendations to follow. Job#: [id number]
[2018-06-16] MEDS: SODIUM BICARBONATE 8.4% SYRING 150 ML in DEXTROSE 5% 1,000 ML IV SCH (20:20)
[2018-06-16 20:49] VITALS: BP 154/69
[2018-06-16] MEDS ORDERED: FENOFIBRATE145 MG (22:41)
[2018-06-17] VITALS (11 sets, daily range): BP systolic 113–152; BP diastolic 56–71
[2018-06-17 05:26] LABS: HEMOGLOBIN 7.1 g/dL (12.0-16.0); LYMPHOCYTES # (AUTO) 0.8 (1.0-3.2); LYMPHOCYTES % 43.4 % (18.0-39.1); MEAN CORPUSCULAR HEMOGLOBIN 33.8 pg (28-32); MEAN CORPUSCULAR VOLUME 96.7 fL (81-99); MONOCYTES # (AUTO) 0.1 (0.2-0.8); MONOCYTES % 2.9 % (4.4-11.3); NEUTROPHILS # (AUTO) 0.9 (2.1-6.9); NEUTROPHILS % 53.1 % (38.7-80.0); PLATELET COUNT 396 x10e3/uL (140-360); RED CELL DISTRIBUTION WIDTH 18.2 % (11.7-14.4)
[2018-06-17 05:34] LABS: HEMATOCRIT 20.3 % (34.2-44.1)
[2018-06-17 05:50] LABS: ALBUMIN 2.8 g/dL (3.5-5.0); ANION GAP 11.4 mmol/L (8-16); CALCIUM 8.6 mg/dL (8.4-10.2); CREATININE, SERUM 1.88 mg/dL (0.57-1.11); POTASSIUM 3.4 mmol/L (3.5-5.1)
[2018-06-17] MEDS: SODIUM BICARBONATE 8.4% SYRING 150 ML in DEXTROSE 5% 1,000 ML IV SCH ×2 (05:52→21:47)
[2018-06-17 06:38] LABS: MAGNESIUM 2.1 MG/DL (1.3-2.1); PHOSPHORUS 2.8 MG/DL (2.3-4.7)
[2018-06-17 07:23] LABS: ANISOCYTOSIS SLIGHT; BLAST CELLS % MANUAL 3; EOSINOPHILS % (MANUAL) 2 % (0-7); HYPOCHROMASIA MODERATE; LYMPHOCYTES % (MANUAL) 45 % (19-48); MONOCYTES % (MANUAL) 2 % (3.4-9.0); NEUTROPHILS % (MANUAL) 48 % (40-74)
[2018-06-17 07:24] LABS: PLATELET ESTIMATE ADEQUATE; PLATELET MORPHOLOGY COMMENT NORMAL; RBC MORPHOLOGY COMMENT ABNORMAL
[2018-06-17] MEDS: FENOFIBRATE 48 MG TAB PO SCH (09:00)
[2018-06-17] MEDS ORDERED: POTASSIUM CHLORIDE 20MEQ/100ML 100 ML IV ONE (09:00)
[2018-06-17] MEDS: PANTOPRAZOLE SOD 40 MG TABEC PO SCH (09:00)
[2018-06-17] MEDS: LISINOPRIL 2.5 MG TAB PO SCH (09:00)
[2018-06-17] MEDS: HYDROCHLOROTHIAZIDE 25 MG TAB PO SCH (09:00)
[2018-06-17] MEDS: METOPROLOL SUCCINATE 50 MG TAB XL PO SCH (09:00)
[2018-06-17] MEDS: ASPIRIN 81 MG CHEW TAB PO SCH (09:00)
[2018-06-17] MEDS: OMEGA 3 POLYUNSAT FATTY ACIDS 1000 MG SOFTGEL PO SCH (09:00)
--- NOTE | 2018-06-17 09:25 | Diagnostic Imaging Report ---
PROCEDURE:US RETROPERITONEAL ( KIDNEY ). COMPARISON:CT abdomen and pelvis without contrast 01/26/2018. INDICATIONS:BRADLY TECHNIQUE: Carvajal-scale and color sonographic images of the bilateral kidneys and bladder where obtained in transverse and longitudinal planes. FINDINGS: RIGHT KIDNEY: 10.5 cm in length, cortical thickness 1.9 cm. Cysts: 2 simple cysts are identified, measuring 2.9 x 2 x 2.6 cm and 1.8 x 1.8 x 2.2 cm, both essentially unchanged in size relative to CT abdomen and pelvis 01/26/2018 accounting for differences in technique. Solid masses: None Stones: None Hydronephrosis: None Echogenicity: Normal renal cortical echogenicity. LEFT KIDNEY: Status post left nephrectomy. No abnormal soft tissue in the left retroperitoneum. Bladder: Unremarkable. Right ureteral jet is identified. CONCLUSION: 2 right renal cysts, not significantly changed in size relative to 01/26/2018 CT abdomen and pelvis without contrast. Normal right renal cortical echogenicity without hydronephrosis. Absent left kidney. Dictated by: Kevin Graves M.D. on 06/17/2018 at 9:35 Electronically approved by: Kevin Graves M.D. on 06/17/2018 at 9:35
[2018-06-17] MEDS ORDERED: SODIUM CHLORIDE 0.9% 250ML 250 ML ONE (13:09)
[2018-06-17] MEDS: SIMVASTATIN 20 MG TAB PO SCH (21:05)
[2018-06-18] VITALS (7 sets, daily range): BP systolic 136–165; BP diastolic 65–85
[2018-06-18 04:54] LABS: HEMATOCRIT 30.6 % (34.2-44.1); HEMOGLOBIN 10.4 g/dL (12.0-16.0); LYMPHOCYTES # (AUTO) 0.7 (1.0-3.2); LYMPHOCYTES % 51.5 % (18.0-39.1); MONOCYTES # (AUTO) 0.1 (0.2-0.8); MONOCYTES % 4.4 % (4.4-11.3); NEUTROPHILS # (AUTO) 0.6 (2.1-6.9); NEUTROPHILS % 43.4 % (38.7-80.0); PLATELET COUNT 284 x10e3/uL (140-360); RED BLOOD COUNT 3.35 x10e6/uL (3.6-5.1); RED CELL DISTRIBUTION WIDTH 17.6 % (11.7-14.4)
[2018-06-18 05:23] LABS: ANION GAP 11.3 mmol/L (8-16); CALCIUM 8.7 mg/dL (8.4-10.2); CREATININE, SERUM 1.21 mg/dL (0.57-1.11); POTASSIUM 3.3 mmol/L (3.5-5.1)
[2018-06-18 05:49] LABS: MEAN CORPUSCULAR VOLUME 91.3 fL (81-99)
[2018-06-18] MEDS: SODIUM BICARBONATE 8.4% SYRING 150 ML in DEXTROSE 5% 1,000 ML IV SCH ×2 (06:30→17:27)
[2018-06-18 07:50] LABS: EOSINOPHILS % (MANUAL) 1 % (0-7); LYMPHOCYTES % (MANUAL) 46 % (19-48); MONOCYTES % (MANUAL) 3 % (3.4-9.0); NEUTROPHILS % (MANUAL) 50 % (40-74)
[2018-06-18 07:54] LABS: ANISOCYTOSIS SLIGHT; PLATELET ESTIMATE ADEQUATE; PLATELET MORPHOLOGY COMMENT NORMAL; RBC MORPHOLOGY COMMENT NORMAL
[2018-06-18] MEDS: FILGRASTIM 480 MCG/0.8 ML SYRINGE SQ SCH (09:00)
[2018-06-18] MEDS ORDERED: POTASSIUM CHLORIDE 20MEQ/100ML 200 ML IV ONE (09:00)
[2018-06-18] MEDS ORDERED: FILGRASTIM 300 MCG/ML VIAL SC SCH (09:00)
[2018-06-18] MEDS: OMEGA 3 POLYUNSAT FATTY ACIDS 1000 MG SOFTGEL PO SCH (10:08)
[2018-06-18] MEDS: HYDROCHLOROTHIAZIDE 25 MG TAB PO SCH (10:08)
[2018-06-18] MEDS: ASPIRIN 81 MG CHEW TAB PO SCH (10:08)
[2018-06-18] MEDS: METOPROLOL SUCCINATE 50 MG TAB XL PO SCH (10:09)
[2018-06-18] MEDS: PANTOPRAZOLE SOD 40 MG TABEC PO SCH (10:09)
[2018-06-18] MEDS: LISINOPRIL 2.5 MG TAB PO SCH (10:09)
[2018-06-18] MEDS: FENOFIBRATE 48 MG TAB PO SCH (10:09)
[2018-06-18] MEDS: SIMVASTATIN 20 MG TAB PO SCH (21:54)
[2018-06-19] VITALS (7 sets, daily range): BP systolic 134–173; BP diastolic 61–78
[2018-06-19] MEDS: SODIUM BICARBONATE 8.4% SYRING 150 ML in DEXTROSE 5% 1,000 ML IV SCH ×2 (03:00→16:41)
[2018-06-19] MEDS: METOPROLOL SUCCINATE 50 MG TAB XL PO SCH (09:00)
[2018-06-19] MEDS: OMEGA 3 POLYUNSAT FATTY ACIDS 1000 MG SOFTGEL PO SCH (09:00)
[2018-06-19] MEDS: FENOFIBRATE 48 MG TAB PO SCH (09:00)
[2018-06-19] MEDS: LISINOPRIL 2.5 MG TAB PO SCH (09:00)
[2018-06-19] MEDS: PANTOPRAZOLE SOD 40 MG TABEC PO SCH (09:00)
[2018-06-19] MEDS: FILGRASTIM 480 MCG/0.8 ML SYRINGE SQ SCH (09:00)
[2018-06-19] MEDS: ASPIRIN 81 MG CHEW TAB PO SCH (09:00)
[2018-06-19] MEDS: HYDROCHLOROTHIAZIDE 25 MG TAB PO SCH (09:00)
[2018-06-19 12:23] LABS: BASOPHILS % 0.3 % (0.0-1.0); EOSINOPHILS % 0.2 % (0.0-6.0); HEMATOCRIT 37.1 % (34.2-44.1); HEMOGLOBIN 12.4 g/dL (12.0-16.0); LYMPHOCYTES % 7.2 % (18.0-39.1); MEAN CORPUSCULAR HEMOGLOBIN 31.6 pg (28-32); MEAN CORPUSCULAR HGB CONC 33.4 g/dL (31-35); MEAN CORPUSCULAR VOLUME 94.4 fL (81-99); MONOCYTES # (AUTO) 0.2 (0.2-0.8); MONOCYTES % 1.6 % (4.4-11.3); NEUTROPHILS # (AUTO) 12.5 (2.1-6.9); NEUTROPHILS % 88.6 % (38.7-80.0); PLATELET COUNT 261 x10e3/uL (140-360); RED BLOOD COUNT 3.93 x10e6/uL (3.6-5.1); RED CELL DISTRIBUTION WIDTH 17.6 % (11.7-14.4)
[2018-06-19 12:45] LABS: ANION GAP 14.4 mmol/L (8-16); CREATININE, SERUM 1.1 mg/dL (0.57-1.11); POTASSIUM 3.4 mmol/L (3.5-5.1)
[2018-06-19 13:09] LABS: BAND NEUTROPHILS % (MANUAL) 2 %; EOSINOPHILS % (MANUAL) 1 % (0-7); LYMPHOCYTES % (MANUAL) 9 % (19-48); MONOCYTES % (MANUAL) 2 % (3.4-9.0)
[2018-06-19 13:10] LABS: NEUTROPHILS % (MANUAL) 86 % (40-74); PLATELET ESTIMATE ADEQUATE; PLATELET MORPHOLOGY COMMENT NORMAL
[2018-06-19 13:11] LABS: RBC MORPHOLOGY COMMENT NORMAL
[2018-06-19] MEDS ORDERED: POTASSIUM CHLORIDE 20MEQ/100ML 100 ML IV ONE (13:30)
--- NOTE | 2018-06-19 15:56 | History and Physical ---
Hazel Lin is a 78-year-old white female who presented with weakness, nausea, vomiting, dehydration, subsequently admitted for further evaluation and treatment. HISTORY OF PAST ILLNESS: History of cancer of the pancreas, history of having had a Whipple's procedure. The patient, however, has relapsed twice, has been on systemic chemotherapy consisting of a single agent Gemzar. SOCIAL HISTORY: Noncontributory. FAMILY HISTORY: Noncontributory. ALLERGIES: REPORTED NONE. MEDICATIONS: At this time consist of sodium chloride. REVIEW OF SYSTEMS HEENT: Normal. CARDIAC: History of hyperlipidemia. RESPIRATORY: Normal. GI: Cancer of the pancreas with relapse after Whipple's. : Normal, however, dehydrated with renal dysfunction at this time. MUSCULOSKELETAL: Normal. SKIN AND BREASTS: Normal. NEUROENDOCRINE: Normal. PHYSICAL EXAM: GENERAL: A rather thin-built female, dehydrated. NECK: No palpable adenopathy. HEART: Within normal limits. LUNGS: Clear. ABDOMEN: Soft. Midline scar of surgery. RECTAL: Deferred. CENTRAL NERVOUS SYSTEM: Essentially normal. LABORATORY DATA: BUN high at 62, creatinine high at 2.8. Hemoglobin 9.3, hematocrit 28, white count 2400, platelets 837,000. IMPRESSION 1. Hyperkalemia. 2. Dehydration. 3. Renal failure. 4. Anemia. 5. Neutropenia. 6. Thrombocythemia. 7. Status post Whipple's. 8. Recurrent cancer of the pancreas. PLAN: To have hydration. Closely watch the neutrophils and the hemoglobin. Consult nephrology. Job#: [id number]
--- NOTE | 2018-06-19 17:53 | Discharge Summary ---
Hazel Lin is a 78-year-old white female admitted for multitude of problems. For details of history and physical, please review my dictation dated June 16. On admission, hemoglobin was 9.3, white count 2000, and platelets 837,000. BUN 62, creatinine 2.8. The patient was hydrated and the patient subsequently was also given antiemetics. The patient had a CBC the following day, hemoglobin dropped down to 7.1, white count of 1700. BUN dropped down to 48, creatinine 1.8, potassium 3.4. Subsequently, 2 units of packed RBCs were given. Potassium was supplemented. The patient's CBC on the following day showed a hemoglobin of 10.4, hematocrit 30.6, WBC of 1.3, and platelets down to 284,000. BUN and creatinine 22 and 1.2. In spite of potassium supplement, the potassium was 3.3, 40 mEq of potassium was again given IV. The potassium is still today is 3.3. Patient's hemoglobin has gone up and the white count has gone up. Subsequently with potassium supplement today, the patient will be discharged to see me back in the office in 1 week. FINAL DIAGNOSES 1. Dehydration. 2. Acute tubular necrosis. 3. Neutropenia. 4. Anemia. 5. Thrombocythemia. 6. Electrolyte imbalance. 7. Status post Whipple's. 8. History of hypertension. 9. History of hyperlipidemia. The patient at the present time is on; 1. Sodium bicarbonate. 2. Aspirin 81 mg a day. 3. Fenofibrate 48 mg a day. 4. [place]-3, 1000 units a day. 5. Hydrochlorothiazide 25 mg a day. 6. Lisinopril 2.5 mg a day. 7. Simvastatin 10 mg a day. 8. Metoprolol 25 mg a day. The patient will be seen in the office in a week. Job#: [id number] ARIANNA
== END 2018-06-19 17:04 | disposition home or self-care (01) ==
LOC: ER 09:00 → ERHOLD 10:14 → MED/SURG2 14:34 → RAD HOLD 06-18 09:34 → MED/SURG2 06-18 09:36
PROVIDERS: ADMIT Internal Medicine Medical Oncology; ATTEND Internal Medicine Medical Oncology
DX: E86.0 Dehydration (principal); R10.84 Generalized abdominal pain; I12.9 Hypertensive chronic kidney disease with stage 1 through stage 4 chronic kidney disease, or unspecified chronic kidney disease; N18.9 Chronic kidney disease, unspecified; Z85.07 Personal history of malignant neoplasm of pancreas; D64.9 Anemia, unspecified; E87.5 Hyperkalemia; D70.9 Neutropenia, unspecified; D69.6 Thrombocytopenia, unspecified; E87.2 Acidosis; E87.1 Hypo-osmolality and hyponatremia; N17.0 Acute kidney failure with tubular necrosis; E78.5 Hyperlipidemia, unspecified
CPT/HCPCS: 36415 ×4; 36430; 76770; 80048 ×2; 80053 ×2; 83735 ×2; 84100; 84550; 85025 ×4; 86301; 86850; 86900; 86920; 97139; 99284; G0378 ×4; J1442; J3480 ×3; J7030; J7050; J7070 ×3; P9016; S0164 ×3

== ENCOUNTER → 2018-08-27 | Day surgery (SDC) | payer MEDICARE, OTHER ==
[~2018-08-27] MED LIST changes: +BUPIVACAINE 0.5%/EPI 30 ML SDV INJ ONE; +CEFTRIAXONE SOD 1 GM VIAL ONE; +FENOFIBRATE145 MG; +FENTANYL CITRATE/PF 100MCG/2 ML INJ ONE; +KETOROLAC TROMETHAMINE 30 MG/ML VIAL ONE; +LIDOCAINE HCL 2% LOCAL INJ 5 ML SDV VIAL INJ ONE; +ONDANSETRON HCL INJ 2MG/ML 2ML 2 MG/ML VIAL ONE; +PROPOFOL IV EMULSION 10 MG/ML 20 ML VIAL ONE; +SEVOFLURANE INHAL SOLN 250 ML PEN BTL ONE
--- OUTSIDE RECORDS SUMMARY | 2018-08-27 12:17 | XMS REPORT | Continuity of Care Document ---
Author Author [facility] Interface Address Unknown Phone Unavailable Problems Problem Status Onset Date Classification Date Reported Comments Source SDH Active 12/24/2015 [facility] HEAD BLEED Active 12/24/2015 [facility] UNK Active 12/07/2015 [facility] Acid reflux Active Problem 12/29/2015 [facility] Hyperlipidemia Active Problem 12/29/2015 [facility] Hypertension Active Problem 12/29/2015 [facility] Mass of pancreas Resolved Problem 12/29/2015 [facility] SUBDURAL HEMORRHAGE DUE TO INJURY Active [facility] OTHER SPECIFIED DISEASES OF PANCREAS Active [facility] Medications Medication Details Route Status Patient Instructions Ordering Provider Order Date Source Levetiracetam 500 MG Oral Tablet 500 mg=1 tab, PO, Q12H, # 11 tab, 0 Refill(s) Active 12/26/2015 [facility] Lovenox 40 mg, 0.4 mL, Route: SUB-Q, Drug form: INJ, [id number], Dosing Weight 52.182, kg, Start date: 12/26/15 9:00:00 CDT, Duration: 30 day, Stop date: 01/24/16 9:00:00 CDTNotes: (Same as: Lovenox) Inactive 12/26/2015 [facility] Simvastatin 10 mg, 1 tab, Route: PO, Drug form: TAB, Bedtime, Dosing Weight 52.182, kg, Start date: 12/25/15 21:00:00 CDT, Duration: 30 day, Stop date: 01/23/16 21:00:00 CDTNotes: (Same as: Zocor) No Longer Active 12/26/2015 [facility] metoprolol tartrate 12.5 mg, 1 tab, Route: PO, Drug form: TAB, Q12H, Dosing Weight 52.182, kg, Start date: 12/25/15 9:00:00 CDT, Duration: 30 day, Stop date: 01/23/16 21:00:00 CDTNotes: (Same as: Lopressor) 12.5mg=1/4 X 50 mg tab. No Longer Active 12/25/2015 [facility] Saline Flush 0.9% 10 ml, Route: IVP, Drug Form: INJ, Dosing Weight 55, kg, Q12H, Start date: 12/25/15 9:00:00 CDT, Duration: 30 day, Stop date: 01/23/16 21:00:00 CDTNotes: (Same as: BD Posiflush) No Longer Active 12/25/2015 [facility] sennosides, [facility] 8.6 mg, 1 tab, Route: PO, Drug Form: TAB, Dosing Weight 55, kg, Q12H, Start date: 12/25/15 9:00:00 CDT, Duration: 30 day, Stop date: 01/23/16 21:00:00 CDTNotes: (Same as: Senokot) No Longer Active 12/25/2015 [facility] Docusate 100 mg, 1 cap, Route: PO, Drug form: CAP, Q12H, Dosing Weight 55, kg, Start date: 12/25/15 9:00:00 CDT, Duration: 30 day, Stop date: 01/23/16 21:00:00 CDTNotes: (Same as: Colace) (Do Not Crush) No Longer Active 12/25/2015 [facility] Levetiracetam 500 mg, 1 tab, Route: PO, Drug form: TAB, Q12H, Dosing Weight 55, kg, Start date: 12/25/15 9:00:00 CDT, Stop date: 12/31/15 23:59:00 CDTNotes: (Same as:Keppra) No Longer Active 12/25/2015 [facility] Protonix 40 mg, 1 tab, Route: PO, Drug form: ECTAB, Before Breakfast, Dosing Weight 52.182, kg, Start date: 12/25/15 7:30:00 CDT, Duration: 30 day, Stop date: 01/23/16 7:30:00 CDTNotes: Tablet should not be c hewed or crushed. (Same as: Protonix) No Longer Active 12/25/2015 [facility] Calcium Carbonate 500 MG Chewable Tablet 1,000 mg, 2 tab, Route: PO, Drug form: CHEWTAB, PRN, Dosing Weight 52.182, kg, PRN Abnormal Lab Result, FOR ICU USE ONLY, Start date: 12/25/15 6:31:00 CDT, Duration: 30 day, Stop date: 01/24/16 6:30:00 CDTNotes: (Same As: Tums) Calcium Carbonate 500 fl=202 mg elemental calcium Dose= mg calcium carbonate ( mg elemental calcium) No Longer Active 12/25/2015 [facility] Magnesium Sulfate 2 gm, 50 mL, Route: IVPB, Drug form: INJ, PRN, Dosing Weight 52.182, kg, PRN Abnormal Lab Result, Start date: 12/25/15 6:31:00 CDT, Duration: 30 day, Stop date: 01/24/16 6:30:00 CDT, FOR ICU USE ONLYNotes: WASTE: F/P - Sink; E - Municipal Trash Bin No Longer Active 12/25/2015 [facility] Magnesium Oxide 800 mg, 2 tab, Route: PO, Drug form: TAB, PRN, Dosing Weight 52.182, kg, PRN Abnormal Lab Result, FOR ICU USE ONLY, Start date: 12/25/15 6:31:00 CDT, Duration: 30 day, Stop date: 01/24/16 6:30:00 CDTNot es: (Same as: Mag-Ox 400) Magnesium oxide [id number] elemental magnesium Dose=____mg magnesium oxide (___mg elemental magnesium) No Longer Active 12/25/2015 [facility] Calcium Gluconate 1 gm, 10 mL, Route: IVPB, PRN, Dosing Weight 52.182, kg, PRN Abnormal Lab Result, Start date: 12/25/15 6:31:00 CDT, Duration: 30 day, Stop date: 01/24/16 6:30:00 CDT, FOR ICU USE ONLYNotes: WASTE: F/P - Sink; E - Municipal Trash Bin No Longer Active 12/25/2015 [facility] Neutra-Phos 2 pkt, Route: PO, Drug Form: PDR/REC, Dosing Weight 52.182, kg, PRN, PRN Abnormal Lab Result, FOR ICU USE ONLY, Start date: 12/25/15 6:31:00 CDT, Duration: 30 day, Stop date: 01/24/16 6:30:00 CDTNotes: (Same as: Neutra-Phos) Each 1.25 gm pkt has 250mg phosphorous. Mix w/2.5oz water and stir. No Longer Active 12/25/2015 [facility] potassium chloride 20 mEq, 100 mL, Route: IVPB, Drug form: INJ, PRN, Dosing Weight 52.182, kg, PRN Abnormal Lab Result, Via central line, Start date: 12/25/15 6:31:00 CDT, Duration: 30 day, Stop date: 01/24/16 6:30:00 CDT, FOR ICU USE ONLYNotes: (Same as: KCL) Infuse no faster than 10 mEq/hr if given peripherally. No Longer Active 12/25/2015 [facility] sodium phosphate + sodium chloride 0.9% INJ 250 mL 15 mmol, 5 mL, Route: IVPB, Drug form: INJ, PRN, Dosing Weight 52.182, kg, PRN Abnormal Lab Result, Start date: 12/25/15 6:31:00 CDT, Duration: 30 day, Stop date: 01/24/16 6:30:00 CDT, FOR ICU USE ONLY No Longer Active 12/25/2015 [facility] potassium phosphate + sodium chloride 0.9% [...] over 4 hours No Longer Active 12/25/2015 [facility] Zofran 4 mg, Route: IVP, Drug form: INJ, ONCE, Dosing Weight 55, kg, Start date: 12/25/15 4:40:00 CDT, Stop date: 12/25/15 4:40:00 CDT Inactive 12/25/2015 [facility] Dextrose 50% Syringe 6.25 gm, 12.5 mL, Route: IVP, Drug Form: INJ, Dosing Weight 55, kg, PRN, PRN Abnormal Lab Result, Start date: 12/25/15 2:09:00 CDT, Duration: 30 day, Stop date: 01/24/16 2:08:00 CDT No Longer Active 12/25/2015 [facility] Regular Insulin, Human 100 UNT/ML Injectable [...] days from Date No Longer Active 12/25/2015 [facility] Saline Flush 0.9% 10 ml, Route: IVP, Drug Form: INJ, Dosing Weight 55, kg, PRN, PRN Line Flush, Start date: 12/25/15 2:09:00 CDT, Duration: 30 day, Stop date: 01/24/16 2:08:00 CDTNotes: (Same as: BD Posiflush) No Longer Active 12/25/2015 [facility] Ondansetron 4 mg, 2 mL, Route: IVP, Drug form: INJ, Q8H, Dosing Weight 55, kg, PRN Nausea & Vomiting, Start date: 12/25/15 2:09:00 CDT, Duration: 30 day, Stop date: 01/24/16 2:08:00 CDTNotes: (Same as: Zofran) MEDICATION WASTE Product Size: 4 mg Product Wasted: __0_ mg No Longer Active 12/25/2015 [facility] Bisacodyl 10 mg, 1 supp, Route: MA, Drug form: SUPP, Daily, Dosing Weight 55, kg, PRN Constipation, Start date: 12/25/15 2:09:00 CDT, Duration: 30 day, Stop date: 01/24/16 2:08:00 CDTNotes: (Same As: Dulcolax, Bisco-Lax) No Longer Active 12/25/2015 [facility] Levetiracetam 1,000 mg, Route: IVPB, Drug form: INJ, ONCE, Dosing Weight 55, kg, Start date: 12/25/15 2:09:00 CDT, Stop date: 12/25/15 2:09:00 CDTNotes: Same as Keppra Mix with 100 mL NS, LR or D5W MEDICATION WASTE Product Size: 500 mg Product Wasted: __0_ mg Inactive 12/25/2015 [facility] Acetaminophen 325 MG / Hydrocodone Bitartrate 5 MG Oral Tablet 1 tab, Route: PO, Drug Form: TAB, Dosing Weight 55, kg, Q4H, PRN Pain Score 1-3, Start date: 12/25/15 2:09:00 CDT, Duration: 30 day, Stop date: 01/24/16 2:08:00 CDTNotes: (Same as: Whittaker 325/5) Do not exceed 4gm/day of acetaminophen. Inactive 12/25/2015 [facility] Acetaminophen 325 MG / Hydrocodone Bitartrate 10 MG Oral Tablet 1 tab, Route: PO, Drug Form: TAB, Dosing Weight 55, kg, Q4H, PRN Pain Score 4-6, Start date: 12/25/15 2:09:00 CDT, Duration: 30 day, Stop date: 01/24/16 2:08:00 CDTNotes: Do not exceed 4gm/day of acetaminophen. (Same as: Whittaker 325/10) Inactive 12/25/2015 [facility] Sodium Chloride 0.154 MEQ/ML Injectable Solution 1,000 mL, Rate: 75 ml/hr, Infuse over: 13.3 hr, Route: IV, Dosing Weight 55 kg, Total Volume: 1,000, Start date: 12/25/15 2:09:00 CDT, Stop date: 01/24/16 2:08:00 CDT No Longer Active 12/25/2015 [facility] Saline Flush 0.9% 10 mL, Route: IVP, Drug Form: INJ, Dosing Weight 55, kg, PRN, PRN Line Flush, Start date: 12/25/15 1:11:00 CDT, Duration: 30 day, Stop date: 01/24/16 1:10:00 CDTNotes: Same as: BD Posiflush Sterile No Longer Active 12/25/2015 [facility] Sodium Chloride 0.154 MEQ/ML Injectable Solution 1,000 mL, Rate: 25 ml/hr, Infuse over: 40 hr, Route: IV, Dosing Weight 53.636 kg, Total Volume: 1,000, Start date: 12/21/15 11:24:00 CDT, Duration: 30 day, Stop date: 01/20/16 11:23:00 CDT Inactive 12/21/2015 [facility] calcium calcium, 1 tab, PO, BID, Refill(s) 0 Active 12/17/2015 [facility] Fish Oil PO, 0 Refill(s) Active 12/17/2015 [facility] Aspirin 81 MG Enteric Coated Tablet 81 mg=1 tab, PO, Daily, # 90 tab, 3 Refill(s) Active 12/17/2015 [facility] Fenofibrate 54 MG Oral Tablet 54 mg=1 tab, PO, Daily, # 30 tab, 0 Refill(s) Active 12/17/2015 [facility] simvastatin 10 mg oral tablet 10 mg=1 tab, PO, Bedtime, # 30 tab, 0 Refill(s) Active 12/17/2015 [facility] pantoprazole 40 mg oral enteric coated tablet 40 mg=1 tab, PO, Daily, # 30 tab, 0 Refill(s) Active 12/17/2015 [facility] hydrochlorothiazide 12.5 mg oral tablet 12.5 mg=1 tab, PO, Daily, # 30 tab, 0 Refill(s) Active 12/17/2015 [facility] metoprolol 50 mg oral tablet, extended release 50 mg=1 tab, PO, Daily, # 30 tab, 0 Refill(s) Active 12/17/2015 [facility] Allergies, Adverse Reactions, Alerts Substance Category Reaction Severity Reaction type Status Date Reported Comments Source Immunizations Immunization Date Given Site Status Last Updated Comments Source Results Order Name Results Value Reference Range Date Interpretation Comments Source CHEM PANEL Magnesium Lvl 1.8 mg/dL 1.8 - 2.4 12/26/2015 [facility] CHEM PANEL eGFR 70 mL/min/1.73m2 12/26/2015 [...] should be multiplied by the estimated BMI. [facility] CHEM PANEL Creatinine Lvl 0.83 mg/dL 0.50 - 1.40 12/26/2015 [facility] CHEM PANEL Sodium Lvl 141 meq/L 135 - 145 12/26/2015 [facility] CHEM PANEL Glucose Lvl 93 mg/dL 70 - 99 12/26/2015 [facility] CHEM PANEL BUN 17 mg/dL 7 - 22 12/26/2015 [facility] CHEM PANEL Potassium Lvl 3.5 meq/L 3.5 - 5.1 12/26/2015 [facility] CHEM PANEL Calcium Lvl 8.7 mg/dL 8.5 - 10.5 12/26/2015 [facility] CHEM PANEL Chloride Lvl 109 meq/L 95 - 109 12/26/2015 [facility] CHEM PANEL CO2 23 meq/L 24 - 32 12/26/2015 [facility] CHEM PANEL AGAP 12.5 meq/L 10.0 - 20.0 12/26/2015 [facility] CHEM PANEL AST 108 unit/L 0 - 37 12/26/2015 [facility] CHEM PANEL ALT 137 unit/L 0 - 65 12/26/2015 [facility] CHEM PANEL Albumin Lvl 2.2 g/dL 3.5 - 5.0 12/26/2015 [facility] CHEM PANEL Total Protein 5.7 g/dL 6.4 - 8.4 12/26/2015 [facility] CHEM PANEL Bili Total 3.8 mg/dL 0.2 - 1.3 12/26/2015 [facility] CHEM PANEL Bili Direct 3.0 mg/dL 0.0 - 0.3 12/26/2015 [facility] CHEM PANEL Alk Phos 133 unit/L 39 - 136 12/26/2015 [facility] CHEM PANEL Bili Indirect 0.8 mg/dL 0.0 - 1.0 12/26/2015 [facility] CHEM PANEL A/G Ratio 0.6 0.7 - 1.6 12/26/2015 [facility] CHEM PANEL Globulin 3.5 g/dL 2.0 - 4.0 12/26/2015 [facility] CHEM PANEL Phosphorus 1.6 mg/dL 2.5 - 4.5 12/26/2015 [facility] HEMATOLOGY WBC 8.0 K/CMM 3.7 - 10.4 12/26/2015 [facility] HEMATOLOGY MPV 8.9 fL 7.4 - 10.4 12/26/2015 [facility] HEMATOLOGY RDW 17.6 % 11.5 - 14.5 12/26/2015 [facility] HEMATOLOGY Platelet 279 K/CMM 133 - 450 12/26/2015 [facility] HEMATOLOGY RBC 2.33 M/CMM 4.20 - 5.40 12/26/2015 [facility] HEMATOLOGY Hgb 7.9 g/dL 12.0 - 16.0 12/26/2015 [facility] HEMATOLOGY Hct 23.2 % 36.0 - 48.0 12/26/2015 [facility] HEMATOLOGY MCV 99.5 fL 80.0 - 98.0 12/26/2015 [facility] HEMATOLOGY MCH 33.7 pg 27.0 - 31.0 12/26/2015 [facility] HEMATOLOGY MCHC 33.8 g/dL 32.0 - 36.0 12/26/2015 [facility] HEMATOLOGY Monocytes 6.5 % 2.0 - 12.0 12/26/2015 [facility] HEMATOLOGY Lymphocytes 8.6 % 20.0 - 40.0 12/26/2015 [facility] HEMATOLOGY Basophils 0.4 % 0.0 - 1.0 12/26/2015 [facility] HEMATOLOGY Lymphocytes # 0.7 K/CMM 1.0 - 5.5 12/26/2015 [facility] HEMATOLOGY Eosinophils # 0.2 K/CMM 0.0 - 0.5 12/26/2015 [facility] HEMATOLOGY Monocytes # 0.5 K/CMM 0.0 - 0.8 12/26/2015 [facility] HEMATOLOGY Eosinophils 2.9 % 0.0 - 4.0 12/26/2015 [facility] HEMATOLOGY Segs-Bands # 6.5 K/CMM 1.5 - 8.1 12/26/2015 [facility] HEMATOLOGY Segs 81.6 % 45.0 - 75.0 12/26/2015 [facility] PARATHYROID PROFILE Ca Ion WB 1.17 mMol/L 1.05 - 1.25 12/26/2015 [facility] PARATHYROID PROFILE Ca Norm WB 1.19 mMol/L 1.05 - 1.25 12/26/2015 [facility] ANEMIA STUDY Ferritin Lvl 560 ng/mL 5 - 204 12/25/2015 [facility] ANEMIA STUDY % [place] Fe 36 % 12 - 57 12/25/2015 [facility] ANEMIA STUDY UIBC 123 ug/dl 110 - 370 12/25/2015 [facility] ANEMIA STUDY Iron 69 ug/dl 30 - 160 12/25/2015 [facility] ANEMIA STUDY TIBC 192 ug/dl 228 - 428 12/25/2015 [facility] CARDIAC ENZYMES Troponin-T null 0.000 - 0.100 12/25/2015 [facility] CARDIAC ENZYMES Total CK 31 unit/L 12 - 191 12/25/2015 [facility] CARDIAC ENZYMES Troponin-I 0.02 ng/mL 0.00 - 0.40 12/25/2015 [facility] CHEM PANEL eGFR 69 mL/min/1.73m2 12/25/2015 [...] should be multiplied by the estimated BMI. [facility] CHEM PANEL Calcium Lvl 9.0 mg/dL 8.5 - 10.5 12/25/2015 [facility] CHEM PANEL Potassium Lvl 4.7 meq/L 3.5 - 5.1 12/25/2015 [facility] CHEM PANEL AGAP 11.7 meq/L 10.0 - 20.0 12/25/2015 [facility] CHEM PANEL Chloride Lvl 109 meq/L 95 - 109 12/25/2015 [facility] CHEM PANEL CO2 23 meq/L 24 - 32 12/25/2015 [facility] CHEM PANEL Glucose Lvl 89 mg/dL 70 - 99 12/25/2015 [facility] CHEM PANEL Sodium Lvl 139 meq/L 135 - 145 12/25/2015 [facility] CHEM PANEL BUN 18 mg/dL 7 - 22 12/25/2015 [facility] CHEM PANEL Creatinine Lvl 0.84 mg/dL 0.50 - 1.40 12/25/2015 [facility] CHEM PANEL LDH 155 unit/L 98 - 192 12/25/2015 [facility] CHEM PANEL Bili Indirect 0.5 mg/dL 0.0 - 1.0 12/25/2015 [facility] CHEM PANEL A/G Ratio 0.7 0.7 - 1.6 12/25/2015 [facility] CHEM PANEL Globulin 3.6 g/dL 2.0 - 4.0 12/25/2015 [facility] CHEM PANEL Total Protein 6.0 g/dL 6.4 - 8.4 12/25/2015 [facility] CHEM PANEL Albumin Lvl 2.4 g/dL 3.5 - 5.0 12/25/2015 [facility] CHEM PANEL Alk Phos 152 unit/L 39 - 136 12/25/2015 [facility] CHEM PANEL Bili Direct 3.7 mg/dL 0.0 - 0.3 12/25/2015 [facility] CHEM PANEL Bili Total 4.2 mg/dL 0.2 - 1.3 12/25/2015 [facility] CHEM PANEL AST 142 unit/L 0 - 37 12/25/2015 [facility] CHEM PANEL ALT 161 unit/L 0 - 65 12/25/2015 [facility] HEMATOLOGY Lymphocytes # 0.4 K/CMM 1.0 - 5.5 12/25/2015 [facility] HEMATOLOGY Segs-Bands # 9.2 K/CMM 1.5 - 8.1 12/25/2015 [facility] HEMATOLOGY Monocytes 5.1 % 2.0 - 12.0 12/25/2015 [facility] HEMATOLOGY Basophils 0.1 % 0.0 - 1.0 12/25/2015 [facility] HEMATOLOGY Eosinophils 0.5 % 0.0 - 4.0 12/25/2015 [facility] HEMATOLOGY Polychrom Slight 12/25/2015 [facility] HEMATOLOGY Anisocyte 1+ *ABN* (12/25/15 12:47 PM) None Seen 12/25/2015 [facility] HEMATOLOGY Spherocyte Occasional *ABN* (12/25/15 12:47 PM) None Seen 12/25/2015 [facility] HEMATOLOGY Eosinophils # 0.1 K/CMM 0.0 - 0.5 12/25/2015 [facility] HEMATOLOGY Monocytes # 0.5 K/CMM 0.0 - 0.8 12/25/2015 [facility] HEMATOLOGY Plt Morph Normal (12/25/15 12:47 PM) 12/25/2015 [facility] HEMATOLOGY Lymphocytes 3.9 % 20.0 - 40.0 12/25/2015 [facility] HEMATOLOGY Segs 90.4 % 45.0 - 75.0 12/25/2015 [facility] HEMATOLOGY PB Smear Path Peripheral blood smear shows macrocytic anemia with polychromasia and few microspherocytes. Lymphopenia with reactive lymphocytes. no blast seen. platelets are unremarkable. Few hypersegmented neutrophils.clinical correlation is suggested, anemia studies are suggested including vitamin B12/folic acid.CPT [id number] 12/25/2015 [facility] HEMATOLOGY MPV 9.7 fL 7.4 - 10.4 12/25/2015 [facility] HEMATOLOGY RDW 17.6 % 11.5 - 14.5 12/25/2015 [facility] HEMATOLOGY Platelet 254 K/CMM 133 - 450 12/25/2015 [facility] HEMATOLOGY MCHC 33.8 g/dL 32.0 - 36.0 12/25/2015 [facility] HEMATOLOGY MCV 97.1 fL 80.0 - 98.0 12/25/2015 [facility] HEMATOLOGY MCH 32.8 pg 27.0 - 31.0 12/25/2015 [facility] HEMATOLOGY Hgb 7.4 g/dL 12.0 - 16.0 12/25/2015 [facility] HEMATOLOGY WBC 10.2 K/CMM 3.7 - 10.4 12/25/2015 [facility] HEMATOLOGY RBC 2.26 M/CMM 4.20 - 5.40 12/25/2015 [facility] HEMATOLOGY Hct 22.0 % 36.0 - 48.0 12/25/2015 [facility] CHEM PANEL Phosphorus 2.5 mg/dL 2.5 - 4.5 12/25/2015 [facility] CHEM PANEL Magnesium Lvl 2.0 mg/dL 1.8 - 2.4 12/25/2015 [facility] PARATHYROID PROFILE Ca Norm WB 1.19 mMol/L 1.05 - 1.25 12/25/2015 [facility] PARATHYROID PROFILE Ca Ion WB 1.19 mMol/L 1.05 - 1.25 12/25/2015 [facility] BACTERIAL - SEROLOGY MRSA by PCR Negative (12/25/15 5:02 AM) 12/25/2015 [facility] CARDIAC ENZYMES Troponin-T null 0.000 - 0.100 12/25/2015 [facility] CARDIAC ENZYMES Troponin-I 0.02 ng/mL 0.00 - 0.40 12/25/2015 [facility] CARDIAC ENZYMES Total CK 46 unit/L 12 - 191 12/25/2015 [facility] CHEM PANEL eGFR 55 mL/min/1.73m2 12/25/2015 [...] should be multiplied by the estimated BMI. [facility] CHEM PANEL Sodium Lvl 138 meq/L 135 - 145 12/25/2015 [facility] CHEM PANEL Potassium Lvl 3.0 meq/L 3.5 - 5.1 12/25/2015 Result Comment: Critical Result(s) called to yousif zhao at 12/25/2015 06:25 by harpreet. Read back OK. [facility] CHEM PANEL AGAP 15.0 meq/L 10.0 - 20.0 12/25/2015 [facility] CHEM PANEL Calcium Lvl 9.2 mg/dL 8.5 - 10.5 12/25/2015 [facility] CHEM PANEL Chloride Lvl 104 meq/L 95 - 109 12/25/2015 [facility] CHEM PANEL CO2 22 meq/L 24 - 32 12/25/2015 [facility] CHEM PANEL Creatinine Lvl 1.01 mg/dL 0.50 - 1.40 12/25/2015 [facility] CHEM PANEL BUN 18 mg/dL 7 - 22 12/25/2015 [facility] CHEM PANEL Glucose Lvl 118 mg/dL 70 - 99 12/25/2015 [facility] HEMATOLOGY Monocytes 4.2 % 2.0 - 12.0 12/25/2015 [facility] HEMATOLOGY Basophils 0.1 % 0.0 - 1.0 12/25/2015 [facility] HEMATOLOGY Lymphocytes # 0.5 K/CMM 1.0 - 5.5 12/25/2015 [facility] HEMATOLOGY Segs-Bands # 14.4 K/CMM 1.5 - 8.1 12/25/2015 [facility] HEMATOLOGY Monocytes # 0.7 K/CMM 0.0 - 0.8 12/25/2015 [facility] HEMATOLOGY Lymphocytes 3.4 % 20.0 - 40.0 12/25/2015 [facility] HEMATOLOGY Segs 92.3 % 45.0 - 75.0 12/25/2015 [facility] HEMATOLOGY INR 1.27 0.85 - 1.17 12/25/2015 [facility] HEMATOLOGY PT 16.2 s 12.0 - 14.7 12/25/2015 [facility] HEMATOLOGY PTT 33.7 s 22.9 - 35.8 12/25/2015 [facility] HEMATOLOGY Hct 25.0 % 36.0 - 48.0 12/25/2015 [facility] HEMATOLOGY MCV 97.6 fL 80.0 - 98.0 12/25/2015 [facility] HEMATOLOGY RDW 18.1 % 11.5 - 14.5 12/25/2015 [facility] HEMATOLOGY Platelet 300 K/CMM 133 - 450 12/25/2015 [facility] HEMATOLOGY MCHC 33.7 g/dL 32.0 - 36.0 12/25/2015 [facility] HEMATOLOGY MCH 32.8 pg 27.0 - 31.0 12/25/2015 [facility] HEMATOLOGY MPV 9.1 fL 7.4 - 10.4 12/25/2015 [facility] HEMATOLOGY WBC 15.6 K/CMM 3.7 - 10.4 12/25/2015 [facility] HEMATOLOGY Hgb 8.4 g/dL 12.0 - 16.0 12/25/2015 [facility] HEMATOLOGY RBC 2.56 M/CMM 4.20 - 5.40 12/25/2015 [facility] BLOOD BANK RESULTS ABO/Rh A NEG 12/25/2015 [facility] BLOOD BANK RESULTS Antibody Scrn Negative (12/25/15 1:36 AM) 12/25/2015 [facility] CHEM PANEL Lactic Acid Lvl 1.2 mMol/L 0.5 - 2.2 12/25/2015 [facility] HEMATOLOGY K-time Rapid 0.8 min 0.6 - 2.3 12/25/2015 [facility] HEMATOLOGY Max Amplitude Rapid 68 mm 52 - 71 12/25/2015 [facility] HEMATOLOGY Angle Rapid 81 degrees 64 - 80 12/25/2015 [facility] HEMATOLOGY G-value Rapid 10.4 K d/sc 5.0 - 11.6 12/25/2015 [facility] HEMATOLOGY R-time Rapid 0.5 min 0.4 - 0.7 12/25/2015 [facility] HEMATOLOGY ACT (TEG) Rapid 97 s 86 - 118 12/25/2015 [facility] HEMATOLOGY [place] Rapid 0.3 min 12/25/2015 [facility] HEMATOLOGY Estimated % [place] Rapid 11.0 % 0.0 - 7.5 12/25/2015 Result Comment: "Significant Findings called to German Stewartat 12/25/2015 03:00__by RM__.Read Back OK." [facility] HEMATOLOGY PT 15.9 s 12.0 - 14.7 12/25/2015 [facility] HEMATOLOGY INR 1.24 0.85 - 1.17 12/25/2015 [facility] HEMATOLOGY PTT 38.9 s 22.9 - 35.8 12/25/2015 [facility] HEMATOLOGY RBC Morph Normal (12/25/15 1:36 AM) 12/25/2015 [facility] HEMATOLOGY Plt Morph Normal (12/25/15 1:36 AM) 12/25/2015 [facility] Brain wo contrast CT Brain wo [...] in agreement with preliminary report made by immigration investigator residential nurse: Creator: Claire López Date: Dec 25, 2015 03:31:16 Subject: No significant change in small left subdural hematoma. No new hemorrhage. 12/25/2015 - - Read by: Meño Joshi MD Dictated Date/time: 12/25/15 07:12 Electronically Signed by: Meño Joshi MD 12/25/15 07:14 FINAL REPORT [facility] CHEM PANEL eGFR 46 mL/min/1.73m2 12/17/2015 [...] should be multiplied by the estimated BMI. [facility] CHEM PANEL Potassium Lvl 3.3 meq/L 3.5 - 5.1 12/17/2015 [facility] CHEM PANEL Chloride Lvl 100 meq/L 95 - 109 12/17/2015 [facility] CHEM PANEL Sodium Lvl 137 meq/L 135 - 145 12/17/2015 [facility] CHEM PANEL AGAP 13.3 meq/L 10.0 - 20.0 12/17/2015 [facility] CHEM PANEL Glucose Lvl 115 mg/dL 70 - 99 12/17/2015 [facility] CHEM PANEL CO2 27 meq/L 24 - 32 12/17/2015 [facility] CHEM PANEL Calcium Lvl 9.1 mg/dL 8.5 - 10.5 12/17/2015 [facility] CHEM PANEL BUN 20 mg/dL 7 - 22 12/17/2015 [facility] CHEM PANEL Creatinine Lvl 1.16 mg/dL 0.50 - 1.40 12/17/2015 [facility] Vital Signs Vital Sign Value Date Comments Source Systolic (mm Hg) 149 12/26/2015 [facility] Diastolic (mm Hg) 68 12/26/2015 [facility] Respitory Rate 21 12/26/2015 [facility] Respitory Rate 25 12/26/2015 [facility] Systolic (mm Hg) 130 12/26/2015 [facility] Diastolic (mm Hg) 59 12/26/2015 [facility] Systolic (mm Hg) 134 12/26/2015 [facility] Diastolic (mm Hg) 63 12/26/2015 [facility] Respitory Rate 22 12/26/2015 [facility] BMI Calculated 19.75 12/25/2015 [facility] Weight 52.182 12/25/2015 [facility] Height 162.56 cm 12/25/2015 [facility] Weight 55 12/25/2015 [facility] BMI Calculated 20.81 12/25/2015 [facility] Height 162.56 cm 12/25/2015 [facility] Temperature Oral (F) 98.1 F 12/25/2015 [facility] Heart Rate 65 12/25/2015 [facility] Systolic (mm Hg) 138 12/21/2015 [facility] Diastolic (mm Hg) 68 12/21/2015 [facility] Respitory Rate 16 12/21/2015 [facility] Systolic (mm Hg) 125 12/21/2015 [facility] Diastolic (mm Hg) 58 12/21/2015 [facility] Respitory Rate 16 12/21/2015 [facility] Systolic (mm Hg) 123 12/21/2015 [facility] Diastolic (mm Hg) 56 12/21/2015 [facility] Respitory Rate 16 12/21/2015 [facility] Heart Rate 60 12/21/2015 [facility] Heart Rate 64 12/17/2015 [facility] Temperature Oral (F) 98.2 F 12/17/2015 [facility] Height 162.56 cm 12/17/2015 [facility] BMI Calculated 20.3 12/17/2015 [facility] Weight 53.636 12/17/2015 [facility] Encounters Location Location Details Encounter Type Encounter Number Reason For Visit Attending Provider ADM Date DC Date Status Source [facility] Bedded Outpatient [id number] Yousif Tomaschuckie 12/21/2015 12/21/2015 [facility] Inpatient [id number] Garcíasurjit George 12/25/2015 12/26/2015 [facility] Procedures Procedure Code Date Perfomer Comments Source Tubal ligation [id number] 05/13/1980 [facility] Tubal ligation [id number] 05/13/1980 [facility] Stent placement [id number] [facility] Stent placement [id number] [facility]
--- OUTSIDE RECORDS SUMMARY | 2018-08-27 12:17 | XMS REPORT | Clinical Summary ---
Author Author [facility] [employer] [facility] [employer] Address Unknown Phone Unavailable Care Team Providers Care Screen Handler Name Role Phone Chase Gupta MD PCP [...] Health Maintenance Due Date Last Done Comments SHINGLES VACCINES (1 of 1991 2) PNEUMOCOCCAL 2006 POLYSACCHARIDE VACCINE AGE 65 AND OVER PNEUMOCOCCAL-13 2006 INFLUENZA VACCINE 02/10/2018 Procedures Comments Procedure Name Priority Date/Time Associated Diagnosis TRANSFUSE RED BLOOD CELLS Routine 03/17/2018 5:23 PM CDT TRANSFUSE RED BLOOD CELLS Routine 03/17/2018 5:23 PM CDT after 08/26/2017 Results * Transfuse RBC (03/17/2018 5:23 PM CDT) Only the most recent of 2 results within the time period is included. after 08/26/2017 Insurance Payer Benefit Subscriber ID Type Phone Address Plan / Group MEDICARE MEDICARE xxxxxxxxxx Medicare [place], [place] PART A AND B [facility] xxxxxxxxx HMO/PPO THCARE CHOICE/CHO ICE + Advance Directives Patient has advance care planning documents on file. For more information, jasson montilla contact: Liam Cox [phone] [place] [address]
[2018-08-27 13:37] LABS: BASOPHILS # (AUTO) 0.1 (0.0-0.1); BASOPHILS % 1.9 % (0.0-1.0); HEMATOCRIT 30.9 % (34.2-44.1); LYMPHOCYTES # (AUTO) 0.8 (1.0-3.2); LYMPHOCYTES % 25.9 % (18.0-39.1); MEAN CORPUSCULAR HEMOGLOBIN 35.6 pg (28-32); MEAN CORPUSCULAR HGB CONC 32.4 g/dL (31-35); MONOCYTES # (AUTO) 0.3 (0.2-0.8); MONOCYTES % 10.9 % (4.4-11.3); NEUTROPHILS # (AUTO) 1.9 (2.1-6.9); PLATELET COUNT 301 x10e3/uL (140-360); RED BLOOD COUNT 2.81 x10e6/uL (3.6-5.1); RED CELL DISTRIBUTION WIDTH 21.2 % (11.7-14.4)
[2018-08-27 14:02] LABS: ALBUMIN 3.7 g/dL (3.5-5.0); ALBUMIN/GLOBULIN RATIO 1.2 (0.8-2.0); ANION GAP 16.6 mmol/L (8-16); CALCIUM 9.3 mg/dL (8.4-10.2); CREATININE, SERUM 1.1 mg/dL (0.57-1.11); POTASSIUM 3.6 mmol/L (3.5-5.1)
--- NOTE | 2018-08-27 15:02 | Diagnostic Imaging Report ---
EXAMINATION: CHEST 2 VIEWS INDICATION: Pre-operative chest radiograph. COMPARISON: CT Abdomen/Pelvis 01/26/2018. FINDINGS: TUBES and LINES: Right-sided chest port with catheter tip terminating in the expected location of the SVC. LUNGS: Lungs are well inflated. Lungs are clear. There is no evidence of pneumonia or pulmonary edema. PLEURA: No pleural effusion or pneumothorax. HEART AND MEDIASTINUM: The cardiomediastinal silhouette is unremarkable. BONES AND SOFT TISSUES: No acute osseous abnormality. UPPER ABDOMEN: No free air under the diaphragm. Surgical clips project over the right upper quadrant. IMPRESSION: No acute radiographic abnormality. Signed by: Dr. Aditya Curry MD on 08/27/2018 2:59 PM
--- NOTE | 2018-08-27 15:59 | Operative Report ---
DATE OF PROCEDURE: August 27, 2018 PREOPERATIVE DIAGNOSIS: Malfunctioning eroded right subclavian venous access port. POSTOPERATIVE DIAGNOSIS: Malfunctioning eroded right subclavian venous access port. OPERATION PERFORMED: Excision of eroded right subclavian venous access port. ANESTHESIA: General. COMPLICATIONS: None. ESTIMATED BLOOD LOSS: Minimal. DESCRIPTION OF PROCEDURE: With the patient lying in bed in the supine position under good general anesthesia, the right chest was prepped with Betadine solution and draped in the usual manner. The Port-A-Cath was totally eroded through the skin with about 75% of the Port-A-Cath already sticking out. The Port-A-Cath was then grasped and pulled up and it was being held down by 2 sutures of what appeared to be some kind of Ethibond type suture and these were removed. After this was done, the Port-A-Cath was removed without any difficulty and pressure was held over the tunnel. The Port-A-Cath capsule which was actively inflamed and obviously infected was then excised all the way back to normal bleeding tissue all the way around. The wound was then copiously irrigated with dilute Betadine solution and the subclavian tunnel was then sutured with 3-0 Vicryl suture. The subcutaneous tissue was then approximated with interrupted sutures of 3-0 Vicryl and the skin was closed with interrupted vertical mattress sutures of 3-0 nylon. A dressing was applied. The sponge, lap and needle count was correct. The patient tolerated the procedure well and returned to the recovery room in stable condition. Job#: [id number] MORENITA
[2018-08-27 16:05] VITALS: BP 167/74
== END | disposition home or self-care (01) ==
LOC: OR 12:14
PROVIDERS: ATTEND Surgery
DX: T82.518A Breakdown (mechanical) of other cardiac and vascular devices and implants, initial encounter (principal); K21.9 Gastro-esophageal reflux disease without esophagitis; I10 Essential (primary) hypertension; E78.5 Hyperlipidemia, unspecified; R00.1 Bradycardia, unspecified; Y83.8 Other surgical procedures as the cause of abnormal reaction of the patient, or of later complication, without mention of misadventure at the time of the procedure; Z79.82 Long term (current) use of aspirin; Z85.028 Personal history of other malignant neoplasm of stomach; Z92.21 Personal history of antineoplastic chemotherapy
CPT/HCPCS: 36415; 36590; 71046; 80053; 85025; 88300; 93005; J0696; J1885; J2001; J2405; J2704

== ENCOUNTER → 2018-09-17 | Outpatient (CLI) | payer MEDICARE, OTHER ==
[~2018-09-17] MED LIST changes: -BUPIVACAINE 0.5%/EPI 30 ML SDV INJ ONE; -CEFTRIAXONE SOD 1 GM VIAL ONE; -FENTANYL CITRATE/PF 100MCG/2 ML INJ ONE; +IOPAMIDOL 370 MG/ML 200 ML INFUS..BTL INJ ONE; -KETOROLAC TROMETHAMINE 30 MG/ML VIAL ONE; -LIDOCAINE HCL 2% LOCAL INJ 5 ML SDV VIAL INJ ONE; -ONDANSETRON HCL INJ 2MG/ML 2ML 2 MG/ML VIAL ONE; -PROPOFOL IV EMULSION 10 MG/ML 20 ML VIAL ONE; -SEVOFLURANE INHAL SOLN 250 ML PEN BTL ONE; +SODIUM CHLORIDE 0.9% 500ML 500 ML ONE; +SODIUM CHLORIDE 0.9% 50ML 50 ML ONE
[2018-09-17 17:35] LABS: CREATININE, SERUM 1.19 mg/dL (0.57-1.11)
--- NOTE | 2018-09-17 19:44 | Diagnostic Imaging Report ---
EXAM: CT Abdomen and Pelvis WITH contrast INDICATION: ^PANCREATIC CA. History of Whipple's operation for pancreatic cancer a few years ago. Restarted chemotherapy. COMPARISON: CT abdomen without contrast 01/26/2018. CT abdomen 02/29/2016. TECHNIQUE: Abdomen and pelvis were scanned utilizing a multidetector helical scanner from the lung base to the pubic symphysis after administration of IV contrast. Coronal and sagittal reformations were obtained. Dual liver protocol was performed. Scan was performed during arterial and portal venous phase. IV CONTRAST: 100 mL of Isovue 370 ORAL CONTRAST: Water COMPLICATIONS: None RADIATION DOSE: Total DLP: 279.98 mGy*cm Estimated effective dose: (DLP x 0.015 x size factor) mSv CTDIvol has been reviewed. It is below the limits set by the Radiation Protocol Committee (RPC). Dose modulation, iterative reconstruction, and/or weight based adjustment of the mA/kV was utilized to reduce the radiation dose to as low as reasonably achievable. FINDINGS: LINES and TUBES: None. LOWER THORAX: Stable 3 mm pleural-based nodularity in the right middle lobe (series 2, image 3). Stable 3.6 mm pleural-based nodularity in the lingula abutting the fissure (series 2, image 1). HEPATOBILIARY: The liver is diffuse hypodense compared to the spleen, consistent with diffuse hepatic diffuse hepatic steatosis. No focal hepatic lesions. No biliary ductal dilation. Expected pneumobilia. GALLBLADDER: No radio-opaque stones or sludge. No wall thickening. SPLEEN: No splenomegaly. PANCREAS: Postoperative changes of Whipple's procedure. Residual pancreas demonstrates pancreatic ductal dilatation measuring up to 0.5 cm in diameter. ADRENALS: No adrenal nodules KIDNEYS/URETERS: Right kidney enhances normally. Left kidneys are visualized. No hydronephrosis. Right renal pelvis is mildly dilated with mild erythematous thickening. 3.3 cm and 2.0 cm simple cyst in the right kidney. No stones. GI TRACT: Postoperative changes of Whipple post procedure. No abnormal distention, wall thickening, or evidence of bowel obstruction. Appendix is normal. PELVIC ORGANS/BLADDER: Unremarkable. LYMPH NODES: Increasing confluent mesenteric adenopathy measuring 1.8 x 3.7 cm (series 2, image 126). This previously measured 1.4 x 3.1 cm. This is surrounding the mesenteric vessels, consistent with perineural spread of tumor. On coronal this measures 4.9 cm (series 303, image 36). Previously 3.5 cm. There are additional new mildly prominent mesenteric lymph nodes more distally measuring 0.6 x 1.8 cm (series 2 image 130). VESSELS: There is moderate atherosclerotic disease in the aorta and major arterial branches. PERITONEUM / RETROPERITONEUM: No free air or fluid. BONES: Unremarkable. SOFT TISSUES: Unremarkable. IMPRESSION: 1. Whipple's procedure. 2. Slight increasing confluent mesenteric adenopathy, consistent with peritoneal spread of tumor. There is increasing number of prominent mesenteric lymph nodes are more distal. Signed by: Dr. Durga Ramirez M.D. on 09/17/2018 7:40 PM
== END ==
LOC: CT 16:36
PROVIDERS: ATTEND Internal Medicine Medical Oncology
DX: C25.9 Malignant neoplasm of pancreas, unspecified (principal)
CPT/HCPCS: 36415; 74177; 82565; 84520; J7040; Q9967